=== PATIENT | female | born 1975 | race Caucasian/White ===

== ENCOUNTER 2025-09-01 09:51 | Outpatient (OUT) | payer MEDICARE, MEDICAID, SELFPAY ==
--- OUTSIDE RECORDS SUMMARY | 2024-04-25 04:15 | XMS_ITS | Continuity of Care Document ---
Author Organization [facility] Address [address] [place] [address] Phone Care Team Providers Care Bookbinder Chief Name Role Phone Dakotah GIANFRANCOFranco Unavailable Unavailable Allergies, Adverse Reactions, Alerts Substance Reaction Status Criticality No Known Allergies Active No Inform ation Medications Medication Instructions Dosage Effective Dates (start - stop) Status Comments ibuprofen 600 mg tablet take 1 tablet by oral route 3 times every day with food as needed 600 MG - Active folic acid 20 mg capsule - Active Abilify 10 mg tablet take 1 tablet by oral route every day 10 MG - Active dexlansoprazole 60 mg capsule,biphase delayed release take 1 capsule by oral route every day for 8 weeks 60 MG - Active venlafaxine 100 mg tablet take 1 tablet by oral route 2 times every day with food 100 MG - Active carbamazepine 200 mg tablet take 1 tablet by oral route every 12 hours 200 MG - Active levothyroxine 100 mcg tablet take 1 tablet by oral route every day 100 MCG - Active atorvastatin 40 mg tablet take 1 tablet by oral route every day 40 MG - Active propranolol 10 mg tablet take 2 tablet by oral route 3 times every day 20 MG - Active Vraylar 3 mg capsule take 1 capsule by oral route every day 3 MG - No Longer Active divalproex ER 500 mg tablet,extended release 24 hr take 1 tablet by oral route every day 500 MG - No Longer Active divalproex 125 mg tablet,delayed release take 2 tablet by oral route 2 times every day 250 MG - No Longer Active Seroquel XR 300 mg tablet,extended release take 1 tablet by oral route every day at bedtime 300 MG - No Longer Active Dilantin Extended 100 mg capsule take 1 capsule by oral route 3 times every day 100 MG - No Longer Active Prilosec 40 mg capsule,delayed release take 1 capsule by oral route every day before a meal - No Longer Active Procedures Procedure Date Bitewig-single Film Intraoral-periapical 1st Film [employer] Dis Apr Limited Oral Eval Oral Hygiene Instruction Resin 4+ W/incis Angle Anterior 022 Intraoral-periapical 1st Film Oral Hygiene Instruction Limited Oral Eval Bitewings Four Films Prophylaxis Adult Periodic Oral Eval Estab Patient 2019 [employer] Jul Oral Hygiene Instruction Intraoral-periapical 1st Film 0 PPE Oral Hygiene Instruction Limited Oral Eval Resin 4+ W/incis Angle Anterior 020 Prophylaxis Adult Oral Hygiene Instruction Resin Composite 1s; Posterior 7 Oral Hygiene Instruction Treatment Completed Periodic Oral Eval Estab Patient 2016 Prophylaxis Adult Oral Hygiene Instruction Prophylaxis Adult Oral Hygiene Instruction Resin Composite 3s; Posterior 6 Resin Composite 4+s; Posterior 16 Treatment Completed Treatment Completed Resin Composite 1s; Posterior 6 Resin Composite 2s; Posterior 6 Resin Composite 1s; Posterior 6 Resin Composite 1s; Posterior 6 Prophylaxis Adult Resin Three Surfaces Anterior 6 Resin 4+ W/incis Angle Anterior 016 Intraoral-complete Series (bw) 16 Comp Oral Eval New/estab Patient 2015 Advance Directives Directive Yes / No Effective Date File Name No Information Encounters Encounter Description Practice Location Reason(s) For Visit Diagnoses Date Provider Providers Copied on Encounter [facility], [address], [place], [id number] , [place] tel: [phone] Dental Clinic er (chief complaint) Encounter for screening for dental disorders 4 Dakotah Gamez. [address] [place], [place], [id number], [place]. tel:[phone] [facility], [address], [place], [id number] , [place] tel: [phone] Dental Clinic Filling (chief complaint) Encounter for screening for dental disorders 2 Mujasbirak DDS Kirby. [address] [place], [address], [place]. tel:[phone] [facility], [address] [place] [address], [id number] , [place] tel: [phone] Dental Clinic Dental limited (chief complaint) Encounter for screening for dental disorders 2 Mujasbirak DDS [place]. [address] [place] [address], [address], [place]. tel:[phone] [facility], [address] [place] [address], [id number] , [place] tel: [phone] Dental Clinic Prophy (chief complaint) Encounter for screening for dental disorders 2 0 Og Rivero. [address], [place], [id number], [place]. tel:[phone] [facility], [address], [place], [id number] , [place] tel: [phone] Dental Clinic DL (chief complaint) Encounter for screening for dental disorders 0 0 Yao Monterroso. [address], [place], [id number], [place]. tel:[phone] [facility], [address] [place] [address], [id number] , [place] tel: [phone] Dental Clinic prophy (chief complaint) Encounter for screening for dental disorder 4 8 Marykaseykarisidoro DMD Zanapriscilaulochana. [address] [place], [address], [place]. tel:[phone] [facility], [address], [place], [id number] , [place] tel:[phone] Dental Clinic Filling (chief complaint) Encounter for screening for dental disorder 7 [facility] Edward. [address] [place], [address], [place]. tel:[phone] [facility], [address], [place], [id number] , [place] tel:[phone] Dental Clinic Prophy (chief complaint) Encounter for screening for dental disorder 0 7 [facility] Edward. [address] [place], [address], [place]. tel:[phone] [facility], [address], [place], [id number] , [place] tel:[phone] Dental Clinic prophy (chief complaint) Encounter for screening for dental disorder 7 Hawk DMD Jinbo. [address] [place], [address], [place]. tel:[phone] [facility], [address], [place], [id number] , [place] tel:[phone] Dental Clinic filling (chief complaint) Encounter for screening for dental disorder 6 Hawk DMD Jinbo. [address] [place], [address], [place]. tel:[phone] [facility], [address], [place], [id number] , [place] tel:[phone] Dental Clinic filling (chief complaint) Encounter for screening for dental disorder 6 Hawk DMD Jinbo. [address] [place], [address], [place]. tel:[phone] [facility], [address], [place], [id number] , [place] tel:[phone] Dental Clinic filling (chief complaint) Encounter for screening for dental disorder 6 [facility] Derikbo. [address] [place], [address], [place]. tel:[phone] [facility], [address], [place], [id number] , [place] [phone] Dental Clinic Fillling (chief complaint) Encounter for screening for dental disorder 0 6 [facility] Jinbo. [address] [place], [address], [place]. tel:[phone] [facility], [address] [place] [address], [id number] , [place] [phone] Dental Clinic prophy (chief complaint) Encounter for screening for dental disorder 6 [facility] January. [address], [place], [id number], [place]. tel:[phone] [facility], [address] [place] [address], [id number] , [place] tel:[phone] Dental Clinic Encounter for screening for dental disorder 6 [facility] January. [address], [place], [id number], [place]. tel:[phone] [facility], [address] [place] [address], [id number] , [place] tel:[phone] Dental Clinic Encounter for screening for dental disorder 6 [facility] January. [address], [place], [id number], [place]. tel:[phone] Family History Family Member Type Diagnosis Age At Onset Mother Problem (finding) Alive and well Father Problem (finding) Alive and well Payers Payer name Insurance type Covered libertarian ID Authoriza tierin(s) Self Pay Indigent 09 [id number] Social History Type Description Quantity Date Captured Comments Alcohol Use Details Unknown Caffeine Use Details Unknown Tobacco Use Status Never smoked tobacco 2023 Smoking Status Never smoker Sex Female Sexual Orientation Straight or heterosexual Mar Gender Identity Female Vital Signs Date / Time: Height Weight BMI Pulse Rate Blood Pressure Temperature Respiratory Rate Body Surface Area Head Circumference Head Circ. Percentile Wt./Miguel. Percentile BMI percentile Pulse Ox Inhaled Ox 9:31 AM 68 /min 86/74 mm[Hg] 97.80 F Chief Complaint And Reason For Visit From encounter dated '04/25/2024 09:15'. er (chief complaint) Reason For Referral Reason For Referral No Information Plan Of Treatment Date Type Action Status Goal Tdap Vaccine. Due on 2023 due Goal Zoster vaccine (). Due on due Goal Unhealthy drug use screening . Due on due Goal PRAPARE ASSESSMENT. Due on due Goal Colonoscopy. Due on due Goal CT-Colonography. Due on due Goal HPV. Due on due Goal FIT. Due on due Goal Lipid panel. Due on due Goal Influenza vaccine. Due on due Goal Tdap. Due on due Goal FOBT. Due on due Goal Hepatitis C screening. Due o n due Goal Mammogram. Due on due Goal FIT-DNA. Due on due Goal Depression screening. Due on due Goal Influenza vaccine. Due on due Goal Depression screening. Due on due Goal Lipid panel. Due on due Goal Tdap. Due on due History Of Present Illness Encounter Date Complaint History Of Prese nt Illness er Filling Continue with tr eatment Dental limited Upper left , fra cture filling Prophy Prophy DL prophy Filling Filling Prophy Prophy prophy filling concern with tth #3 broke while eating filling filling//no prob lems or concerns filling continuing with treatment Fillling Filling prophy Functional Status Date Functional Assessmen t No Information Instructions Date Instruction Additional Infor mation No Information Assessments Type Assessment Date No Information Patient Care Teams Name Effective Dates (start - stop) Status Members No Information
--- OUTSIDE RECORDS SUMMARY | 2025-08-16 08:30 | XMS_ITS | Encounter Summary ---
Author Organization [facility] Address [address], [address] [place] [address] Care Team Providers Care Bookkeeping Manager Name Role Phone Mat Loving MD Primary Care Provider [phone] Reason for Referral * Imaging (Routine) - AuthorizedSpecialtyDiagnoses / ProceduresReferred By ContactReferred To ContactRadiology Diagnoses Visit for screening mammogram Procedures MAHAMED DIGITAL SCREEN W OR WO CAD BILATERAL Mat Loving MD [address] [place] [address] Phone: tel: fax: Referral IDStatusReasonStart DateExpiration DateVisits RequestedVisits [id number]/22/202510/22/202611 Reason for Visit * ReasonCommentsMedicare AWVCoughWheezing with her cough. Keeping pt up at night. Encounter Details DateTypeDepartmentCare Team (Latest Contact Info)Pjvoqizqrdc84/22/2025 9:30 AM EDTOffice Visit Mat Loving MD [address] [place] [address] [place] [address] Mat Loving MD [address] [place], [place] [id number] Medicare annual wellness visit, subsequent (Primary Dx); Visit for screening mammogram; Seizures (HCC); Mixed hyperlipidemia; Other specified hypothyroidism; Primary osteoarthritis of right knee; Bipolar disorder, in partial remission, most recent episode mixed (HCC) Social History Tobacco UseTypesPacks/DayYears UsedDateSmoking Tobacco: NeverSmokeless Tobacco: Never Tobacco Cessation:Counseling Given: No Alcohol UseStandard Drinks/WeekCommentsNever0 (1 standard drink = 0.6 oz pure alcohol)17 years without alcoholSocial Connection and Isolation PanelAnswerDate RecordedIn a typical week, how many times do you talk on the phone with family, friends, or neighbors?More than three times a week08/12/2024How often do you get together with friends or relatives?Twice a week08/12/2024How often do you attend buddhist or confucianist services?Never08/12/2024o you belong to any clubs or organizations such as buddhist groups, unions, fraternal or athletic groups, or school groups?Yes08/12/2024How often do you attend meetings of the clubs or organizations you belong to?1 to 4 times per year08/12/2024re you , , , , never , or living with a partner?Never dqhgmkf7108/12/2024UDIT-CAnswerDate RecordedQ1: How often do you have a drink containing alcohol?Never08/12/2024Q2: How many drinks containing alcohol do you have on a typical day when you are drinking?Patient does not drink08/12/2024Q3: How often do you have six or more drinks on one occasion?Never08/12/2024HQ-2 AnswerDate RecordedPHQ-9 Total Uoruy773Exercise Vital SignAnswerDate RecordedOn average, how many days per week do you engage in moderate to strenuous exercise (like a brisk walk)?0 days08/12/2024On average, how many minutes do you engage in exercise at this level?0 min08/12/2024RAPARE - TransportationAnswerDate RecordedIn the past 12 months, has lack of transportation kept you from medical appointments or from getting medications?No 09/28/2024In the past 12 months, has lack of transportation kept you from meetings, work, or from getting things needed for daily living?No09/28/2024 Housing Stability Vital SignAnswerDate RecordedUnable to Pay for Housing in the Last YearNot on file02/10/2024Number of Places Lived in the Last YearNot on file 02/10/2024In the last 12 months, was there a time when you did not have a steady place to sleep or slept in ashelter (including now)?No02/10/2024Housing Stability Vital SignAnswerDate RecordedIn the last 12 months, was there a time when you were not able to pay the mortgage or rent on time?No08/18/2025In the past 12 months, how many times have you moved where you were living? At any time in the past 12 months, were you homeless or living in a detention (including now)?No08/18/2025Humiliation, Afraid, Rape, and Kick questionnaire AnswerDate RecordedWithin the last year, have you been afraid of your partner or ex-partner?No08/18/2025Within the last year, have you been humiliated or emotionally abused in other ways by your partner or ex-partner?No08/18/2025 Within the last year, have you been kicked, hit, slapped, or otherwise physically hurt by your partner or ex-partner?No08/18/2025Within the last year, have you been raped or forced to have any kind of sexual activity by your part ner or ex-partner?No08/18/2025Social Connection and Isolation PanelAnswerDate RecordedIn a typical week, how many times do you talk on the phone with family, friends, or neighbors?More than three times a week08/18/2025How often do you get together with friends or relatives?Once a week08/18/2025How often do you attend buddhist or confucianist services?Never08/18/2025Do you belong to any clubs or organizations such as buddhist groups, unions, fraternal or athletic groups, or school groups?Yes08/18/2025How often do you attend meetings of the clubs or organizations you belong to?More than 4 times per year08/18/2025re you , , , , never , or living with a partner?Never eqjjctc6408/18/2025UDIT-CAnswerDate RecordedQ1: How often do you have a drink containing alcohol?Never08/18/2025Q2: How many drinks containing alcohol do you have on a typical day when you are drinking?Patient does not drink08/18/2025Q3: How often do you have six or more drinks on one occasion?Never08/18/2025Overall Financial Resource Strain (CARDIA)AnswerDate RecordedHow hard is it for you to pay for the very basics like food, housing, medical care, and heating?Not hard at all08/18/2025[facility] [place] [facility] Occup[facility] - Occupational Stress QuestionnaireAnswerDate RecordedDo you feel stress - tense, restless, nervous, or anxious, or unable to sleep at night because yourmind is troubled all the time - these days?To some dvhoku2608/18/2025Exercise Vital SignAnswerDate Recorded On average, how many days per week do you engage in moderate to strenuous exercise (like a brisk walk)?0 days08/18/2025On average, how many minutes do you engage in exercise at this level?0 min08/18/2025Hunger Vital SignAnswerDate RecordedWithin the past 12 months, you worried that your food would run out before you got the money to buymore.Sometimes true08/18/2025Within the past 12 months, the food you bought just didn't last and you didn't have money to get more.Sometimes true08/18/2025PRAPARE - TransportationAnswerDate RecordedIn the past 12 months, has lack of transportation kept you from medical appointments or from getting medications?No08/18/2025In the past 12 months, has lack of transportation kept you from meetings, work, or from getting things needed for daily living?No08/18/2025HC UtilitiesAnswerDate RecordedIn the past 12 months has the electric, gas, oil, or water company threatened to shut off services in your home?No08/18/2025Interpersonal Safety ([facility] HRSN)AnswerDate RecordedHow often does anyone, including family and friends, physically hurt you?Never 08/12/2024How often does anyone, including family and friends, scream or curse at you?Never08/12/2024How often does anyone, including family and friends, insult or talk down to you?Khzzye9608/12/2024How often does anyone, including family and friends, threaten you with harm?Never08/12/2024Interpersonal Safety Domain Source: IP Abuse ScreeningAnswerDate RecordedPhysical abuseDenies 09/28/2024Verbal vgivcTiryat14/04/2024Emotional vzhywZofpuv38/04/2024Financial kfugdSznsuw41/04/2024Sexual pudetMqalma95/04/2024CommentsNoSex and Gender InformationValueDate RecordedSex Assigned at BirthNot on fileLegal Sex Glccve7912/05/2012 10:58 AM ESTGender IdentityNot on fileSexual OrientationNot on filedocumented as of this encounter Last Filed Vital Signs Vital SignReadingTime TakenCommentsBlood Sbxwiqrx04/6108/16/2025 9:28 AM EDT Yoxpb092408/16/2025 9:28 AM EDTTemperature--Respiratory Rate--Oxygen Saturation-- Inhaled Oxygen Concentration--Xixbab050.7 kg (244 lb)08/16/2025 9:28 AM EDT Cgethi156 cm (5' 3 )08/16/2025 9:28 AM EDTBody Mass Index43.221 9:28 AM EDTdocumented in this encounter Functional Status * QuestionAnswerDate of AssessmentAuthorQ1: How often do you have a drink containing alcohol?Never08/18/2025 10:52 AM Penny Addison MAQ2: How many drinks containing alcohol do you have on a typical day when you are drinking? Patient does not drink08/18/2025 10:52 AM Penny Addison MAQ3: How often do you have six or more drinks on one occasion?Never08/18/2025 10:52 AM Penny Addison MA * AUDIT-C ScoreAnswerDate of TbgfcpxpaeIpfcvk075/24/2025 10:52 AM Penny Addison MA documented as of this encounter Patient Instructions * Patient Instructions* Mat Loving MD - 08/16/2025 9:59 AM EDT Labs ordered I would like to do this sometime in the next month. They are fasting. Monico Hummel for the cough. I expect it is postnasal drip and unfortunately you are going to be like this for a couple more months Follow-up in 6 months mammogram documented in this encounter Progress Notes * Mat Loving MD - 08/16/2025 9:55 AM EDT Medicare Annual Wellness Visit Cassi Caldera is here for Medicare AWV and Cough (Wheezing with her cough. Keeping pt up at night. ) Assessment & Plan Medicare annual wellness visit, subsequent Visit for screening mammogram - MAHAMED DIGITAL SCREEN W OR WO CAD BILATERAL; Future Seizures (HCC) - Carbamazepine Level, Free; Future Mixed hyperlipidemia - Lipid, Fasting; Future Other specified hypothyroidism - TSH; Future Primary osteoarthritis of right knee - Comprehensive Metabolic Panel, Fasting; Future Bipolar disorder, in partial remission, most recent episode mixed (HCC) Return in 1 year (on 08/16/2026) for Medicare AWV, check up 6 months. Subjective The following acute and/or chronic problems were also addressed today: I wellness No Recent seizure Patient's complete Health Risk Assessment and screening values have been reviewed and are found in Flowsheets. The following problems were reviewed today and where indicated follow up appointments were made and/or referrals ordered. Positive Risk Factor Screenings with Interventions: Inactivity: (!) Abnormal Interventions: Patient declined any further interventions or treatment Abnormal BMI (obese): Body mass index is 43.22 kg/m??. (!) Abnormal Interventions: Patient declines any further evaluation or treatment Obesity Counseling: Patient was asked about her current diet and exercise habits, and personalized advice was provided regarding recommended lifestyle changes. Patient's comorbid health conditions associated with elevated BMI were discussed, as well as the likely benefits of weight loss. Based uponpatient's motivation to change her behavior, the following plan was agreed upon to work toward a weight loss goal of 15 pounds: lower carbohydrate diet. Educational materials for weight loss were provided. Patient will follow-up in 1 year(s) with PCP. Time spent counseling patient: 15 minutes Objective Vitals: 08/16/25 0928 BP: 91/61 Pulse: 62 Weight: 110.7 kg (244 lb) Height: 1.6 m (5' 3 ) Body mass index is 43.22 kg/m??. General Appearance: alert and oriented to person, place and time, well developed and well- nourished, in no acute distress Skin: warm and dry, no rash or erythema Head: normocephalic and atraumatic Eyes: pupils equal, round, and reactive to light, extraocular eye movements intact, conjunctivae normal ENT: tympanic membrane, external ear and ear canal normal bilaterally, nose without deformity, nasal mucosa and turbinates normal without polyps Neck: supple and non-tender without mass, no thyromegaly or thyroid nodules, no cervical lymphadenopathy Pulmonary/Chest: clear to auscultation bilaterally- no wheezes, rales or rhonchi, normal air movement, no respiratory distress Cardiovascular: normal rate, regular rhythm, normal S1 and S2, no murmurs, rubs, clicks, or gallops, distal pulses intact, no carotid bruits Abdomen: soft, non-tender, non-distended, normal bowel sounds, no masses or organomegaly Extremities: no cyanosis, clubbing or edema Musculoskeletal: normal range of motion, no joint swelling, deformity or tenderness Neurologic: reflexes normal and symmetric, no cranial nerve deficit, gait, coordination and speech normal No Known Allergies Prior to Visit Medications Medication Sig Taking? Authorizing Provider hydrOXYzine HCl (ATARAX) 25 MG tablet Take 1 tablet by mouth Yes Isidro Reeves MD traZODone (DESYREL) 100 MG tablet Take 1 tablet by mouth nightly Yes Isidro Reeves MD benzonatate (TESSALON PERLES) 100 MG capsule Take 1 capsule by mouth 3 times daily as needed for Cough Yes Mat Loving MD levothyroxine (SYNTHROID) 100 MCG tablet TAKE 1 TABLET BY MOUTH DAILY Yes Mat Loving MD carBAMazepine (TEGRETOL) 200 MG tablet TAKE 1 TABLET BY MOUTH EVERY MORNING AND TAKE 2 TABLETS BY MOUTH ONCE NIGHTLY Yes Joan Amaro MD atorvastatin (LIPITOR) 40 MG tablet TAKE 1 TABLET BY MOUTH ONCE DAILY Yes Mat Loving MD propranolol (INDERAL) 20 MG tablet Take 1 tablet by mouth 2 times daily Yes Joan Amaro MD fluticasone (FLONASE) 50 MCG/ACT nasal spray 1 spray by Each Nostril route daily Yes Mat Loving MD lamoTRIgine (LAMICTAL) 25 MG tablet Take 1 tablet by mouth daily Yes ProviderIsidro MD ARIPiprazole (ABILIFY) 10 MG tablet Take 1 tablet by mouth nightly at bedtime. Yes Isidro Reeves MD DEXILANT 60 MG CPDR delayed release capsule take 1 capsule by mouth once daily Yes ProviderIsidro MD folic acid (FOLVITE) 800 MCG tablet Take 1 tablet by mouth daily Yes Isidro Reeves MD venlafaxine (EFFEXOR) 100 MG tablet Take 1 tablet by mouth 2 times daily Yes Mat Loving MD [facility] (Including outside providers/suppliers regularly involved in providing care): Patient Care Team: Mat Loving MD as PCP - General Mat Loving MD as PCP - Empaneled Provider Recommendations for Preventive Services Due: see orders and patient instructions/AVS. Recommended screening schedule for the next 5-10 years is provided to the patient in written form: see Patient Instructions/AVS. Reviewed and updated this visit: Tobacco Allergies Meds Problems documented in this encounter Plan of Treatment DateTypeDepartmentCare Team (Latest Contact Info)Gssdxallafh71/21/2026 10:00 AM EDTOffice Visit Mat Loving MD [address] [place] [address] [place] [phone] Mat Loving MD [address] [place] [address], [address] [facility] [place] [address] 6 month 02/15/2026 10:40 AM EDTOffice Visit [facility] Part of [address] [place] [address] Joan Amaro MD [address] [place] [address] [facility] [address] [facility] [place] [address] 6 month f/u; Qgjgkyw72/27/2026 10:00 AM EDTOffice Visit Mat Loving MD [address] [place] [phone] Mat Loving MD [address] [facility], [place] [address] awvNameTypePriorityAssociated DiagnosesOrder ScheduleMAM DIGITAL SCREEN W OR WO CAD BILATERALImagingRoutine Visit for screening mammogram Expected: 08/16/2025, Expires: 10/16/2026documented as of this encounter Results * TSH (08/28/2025 7:22 AM EST)ComponentValueRef RangeTest MethodAnalysis Time Performed AtPathologist SignatureTSH2.490.27 - 4.20 uIU/mL08/28/2025 7:22 AM [facility] LABSpecimen (Source)Anatomical Location / LateralityCollection Method / VolumeCollection TimeReceived TimeBloodBLOOD SPECIMEN / Jztzcdv6908/28/2025 7:22 AM EST08/28/2025 7:23 AM EST Narrative Authorizing ProviderResult TypeResult StatusMark Stuart Loving MDCHEMISTRY ORDERABLESFinal ResultPerforming OrganizationAddressCity/State/ZIP CodePhone Number [facility] [address] [place] [address], [facility] [phone] * Carbamazepine Level, Free (08/28/2025 7:22 AM EST)ComponentValueRef RangeTest MethodAnalysis TimePerformed AtPathologist SignatureCarbamazepine, Free1.71.0 - 3.0 ug/mL08/28/2025 7:22 AM ESTARUP LABORATORYCarbamazepine, Total6.04.0 - 12.0 ug/mL08/28/2025 7:22 AM ESTARUP [facility]ATORY% Free Npkprwbqywolu23.38.0 - 35.0 %08/28/2025 7:22 AM ESTARUP LABORATORYComment: (NOTE) INTERPRETIVE INFORMATION: Carbamazepine, Free and Total, ? Serum or Plasma The therapeutic range is based on serum pre-dose (trough) draw at steady-state concentration. Free carbamazepine may be important to monitor in patients with altered or unpredictable protein binding capacity. Carbamazepine is also subject to drug-drug interactions due to displacement of protein binding and extensive metabolism. Cross-reactivity with metabolites may account for differences in carbamazepine among analytical methods. Calculating percent free attempts to minimize differences in assay cross-reactivity and may be useful in dose optimization. A rare adverse drug reaction to carbamazepine therapy includes Goff-Jonatan syndrome or toxic epidermal necrolysis. Patients of ancestry with the presence of the HLA-B*15:02 have an increased risk for this carbamazepine-induced life-threatening reaction. Pharmacogenetic testing for HLA-B*15:02 is recommended for patients at risk for carbamazepine hypersensitivity prior to treatment. This information has been included in the FDA-approved label for carbamazepine (https://www.accessdata.fda.gov/scripts/cder/daf/index.cfm) and guideline from the Clinical Pharmacogenetics Implementation Consortium (https://www.pharmgkb.org/guidelines) [[facility] test code 4681240, HLA-B*15:02 Genotyping, Carbamazepine Hypersensitivity.] A combination of therapeutic drug monitoring with HLA-B*15:02 pharmacogenetics genotyping may benefit patients who are at increased risk for developing carbamazepine-induced adverse events due to rare genotypes other than HLA-B*15:02 variant allele. Performed By: [employer] [address] [place] [address] Plant Breeder Scientist: Dedrick Gómez MD, PhD CLIA Number: [id number] Specimen (Source)Anatomical Location / LateralityCollection Method / Volume Collection TimeReceived TimeBloodBLOOD SPECIMEN / Yqbwpij5108/28/2025 7:22 AM EST 08/28/2025 7:23 AM EST Narrative Authorizing ProviderResult TypeResult StatusMark Stuart Loving MDCHEMISTRY ORDERABLESFinal ResultPerforming OrganizationAddressCity/State/ZIP CodePhone Number [facility] [address] [place], [place] [address] [phone] [employer] [address] [place] [address] * (ABNORMAL) Comprehensive Metabolic Panel, Fasting (08/28/2025 7:22 AM EST) ComponentValueRef RangeTest MethodAnalysis TimePerformed AtPathologist CugfpzeslEaoroz767(L)136 - 145 mmol/L110/28/2024 7:22 AM [facility] LABPotassium4.23.7 - 5.3 mmol/L110/28/2024 7:22 AM [facility] NAZDufybrak58(L)98 - 107 mmol/L110/28/2024 7:22 AM [facility] UXLTJ37518 - 31 mmol/L110/28/2024 7:22 AM [facility] LABAnion Gap99 - 16 mmol/L110/28/2024 7:22 AM [facility] LABGlucose, Lwxsikr037(H)74 - 99 mg/dL08/28/2025 7:22 AM [facility] BKGAFN614 - 20 mg/dL08/28/2025 7:22 AM [facility] LABCreatinine0.80.50 - 0.90 mg/dL08/28/2025 7:22 AM [facility] LABEst, Glom Filt Rate>90>60 mL/min/1.73m2 08/28/2025 7:22 AM [facility] LABComment: ? These results are not intended for use in patients <18 years of age. ? eGFR results are calculated without a race factor using the 2020 CKD-EPI equation. Careful clinical correlation is recommended, particularly when comparing to results calculated using previous equations. The CKD-EPI equation is less accurate in patients with extremes of muscle mass, extra-renal metabolism of creatine, excessive creatine ingestion, or following therapy that affects renal tubular secretion. BUN/Creatinine Dyskp305 - 7:22 AM [facility] LABCalcium9.38.6 - 10.4 mg/dL08/28/2025 7:22 AM [facility] LABTotal Protein7.56.6 - 8.7 g/dL08/28/2025 7:22 AM [facility] LABAlbumin4.43.5 - 5.2 g/dL08/28/2025 7:22 AM [facility] LABAlbumin/Globulin Ratio1.41.0 - 2.511 7:22 AM [facility] LABTotal Bilirubin0.30.00 - 1.20 mg/dL08/28/2025 7:22 AM EST [facility] LABAlkaline Rwsytwlyztf102(H)35 - 104 U/L110/28/2024 7:22 AM [facility] ZPJQUG0169 - 35 U/L110/28/2024 7:22 AM [facility] NNIZXG0299 - 35 U/L110/28/2024 7:22 AM [facility] LABSpecimen (Source)Anatomical Location / Laterality Collection Method / VolumeCollection TimeReceived TimeBloodBLOOD SPECIMEN / Uvnfyfp7708/28/2025 7:22 AM EST08/28/2025 7:23 AM EST Narrative Authorizing ProviderResult TypeResult StatusMark Stuart Loving MDCHEMISTRY ORDERABLESFinal ResultPerforming OrganizationAddressCity/State/ZIP CodePhone Number [facility] [address] [phone] * Lipid, Fasting (08/28/2025 7:22 AM EST)ComponentValueRef RangeTest Method Analysis TimePerformed AtPathologist SignatureCholesterol, Jplzrgi8951 - 199 mg/dL08/28/2025 7:22 AM [email or web address] LABORATORIESComment: Cholesterol Guidelines: <200 Desirable 200-240 ??Borderline >240 Undesirable HDL60>40 mg/dL08/28/2025 7:22 AM [email or web address] LABORATORIESComment: HDL Guidelines: <40 Undesirable 40-59 ?Borderline >59 Desirable LDL Kiwsnpanlyu030 - 100 mg/dL08/28/2025 7:22 AM [email or web address] LABORATORIESComment: LDL Guidelines: <100 Desirable 100-129 ?? Near to/above Desirable 130-159 ?? Borderline >159 Undesirable Direct (measured) LDL and calculated LDL are not interchangeable tests. Chol/HDL Ratio2.6<5.011 7:22 AM [email or web address] LABORATORIESTriglyceride, Xfyvrmu165 - 149 mg/dL08/28/2025 7:22 AM ESTMERCY LABORATORIESComment: Triglyceride Guidelines: <150 Desirable 150-199 ??Borderline 200-499 ??High >499 Very high Based on AHA Guidelines for fasting triglyceride, July 2012. LIIZ740 - 30 mg/dL08/28/2025 7:22 AM ESTMERCY LABORATORIESSpecimen (Source) Anatomical Location / LateralityCollection Method / VolumeCollection Time Received TimeBloodBLOOD SPECIMEN / Yjpivti4808/28/2025 7:22 AM EST08/28/2025 7:23 AM EST Narrative Authorizing ProviderResult TypeResult StatusMark Stuart Loving MDCHEMISTRY ORDERABLESFinal ResultPerforming OrganizationAddressCity/State/ZIP CodePhone Number [facility] [address] [place] [address], [facility] [phone] [facility] [address] [place] [address], [facility] [phone] documented in this encounter Visit Diagnoses Diagnosis Medicare annual wellness visit, subsequent- Primary Routine general medical examination at a health care facility Visit for screening mammogram Other screening mammogram Seizures (HCC) Other convulsions Mixed hyperlipidemia Other specified hypothyroidism Primary osteoarthritis of right knee Primary localized osteoarthrosis, lower leg Bipolar disorder, in partial remission, most recent episode mixed (HCC) Bipolar I disorder, most recent episode (or current) mixed, in partial or unspecified remission documented in this encounter Additional Health Concerns AssessmentNoted TimeA fall risk assessment has been completed for the patient 08/18/2025 10:52 AM EDTdocumented as of this encounter Care Teams Team MemberRelationshipSpecialtyStart DateEnd Date Mat Loving MD [address] [place] [address] PCP - General07/07/12documented as of this encounter
--- OUTSIDE RECORDS SUMMARY | 2025-08-17 09:40 | XMS_ITS | Encounter Summary ---
Author Organization [facility] Address [address], [address] [place] [address] Care Team Providers Care Driving Teacher Name Role Phone Mat Loving MD Primary Care Provider [phone] Reason for Visit * ReasonCommentsTremors6 month follow up. Patient states tremor continues. It varies. Denies any new seizures. Encounter Details DateTypeDepartmentCare Team (Latest Contact Info)Qrttbwfpwlb51/23/2025 10:40 AM EDTOffice Visit [facility] NE[facility]OLOG[facility] Part of [address] [place] [address] Joan Amaro MD [address] [place] [address] [address] [place] [address] Tremors of nervous system Social History Tobacco UseTypesPacks/DayYears UsedDateSmoking Tobacco: NeverSmokeless Tobacco: NeverAlcohol UseStandard Drinks/WeekCommentsNo0 (1 standard drink = 0.6 oz pure alcohol)17 years without alcoholSocial Connection and Isolation PanelAnswerDate RecordedIn a typical week, how many times do you talk on the phone with family, friends, or neighbors?More than three times a week08/12/2024How often do you get together with friends or relatives?Twice a week08/12/2024How often do you attend religious or mandaeism services?Never4Do you belong to any clubs or organizations such as religious groups, unions, fraternal or athletic groups, or school groups?Yes08/12/2024How often do you attend meetings of the clubs or organizations you belong to?1 to 4 times per year08/12/2024re you , , , , never , or living with a partner?Never kjgtjyz2008/12/2024UDIT-CAnswerDate RecordedQ1: How often do you have a drink containing alcohol?Never08/12/2024Q2: How many drinks containing alcohol do you have on a typical day when you are drinking?Patient does not drink08/12/2024Q3: How often do you have six or more drinks on one occasion?Never08/12/2024HQ-2 AnswerDate RecordedPHQ-9 Total Jooxr979Exercise Vital SignAnswerDate RecordedOn average, how many days [...] steady place to sleep or slept in [facility] (including now)?No02/10/2024Housing Stability Vital SignAnswerDate RecordedIn the last 12 months, was there a time when you were not able to pay the mortgage or rent on time?No08/18/2025In the past 12 months, how many times have you moved where you were living? At any time in the past 12 months, were you homeless or living in a halfway (including now)?No08/18/2025Humiliation, Afraid, Rape, and Kick questionnaire [...] relatives?Once a week08/18/2025How often do you attend religious or mandaeism services?Never08/18/2025Do you belong to any clubs or organizations such as religious groups, unions, fraternal or athletic groups, or school groups?Yes08/18/2025How often do you attend meetings of the clubs or organizations you belong to?More than 4 times per year08/18/2025re you , , , , never , or living with a partner?Never wgmgvgf5308/18/2025UDIT-CAnswerDate RecordedQ1: How often do you have a [...] housing, medical care, and heating?Not hard at all08/18/2025[facility] [place] of Occupational Health - Occupational Stress QuestionnaireAnswerDate RecordedDo you feel stress - tense, restless, nervous, or anxious, or unable to sleep at night because yourmind is troubled all the time - these days?To some smqvrb0108/18/2025Exercise Vital SignAnswerDate Recorded On average, how many [...] has the electric, gas, oil, or water Orad threatened to shut off services in your home?No08/18/2025Interpersonal Safety ([facility])AnswerDate RecordedHow often does anyone, including family and friends, physically hurt you?Never 08/12/2024How often does anyone, including family and friends, scream or curse at you?Never08/12/2024How often does anyone, including family and friends, insult or talk down to you?Yeahmm3208/12/2024How often does anyone, including family and friends, threaten you with harm?Never08/12/2024Interpersonal Safety Domain Source: IP Abuse ScreeningAnswerDate RecordedPhysical abuseDenies 09/28/2024Verbal mmlztHyweyr50/04/2024Emotional flqkzMeruqa21/04/2024Financial ieeneFwiwfn01/04/2024Sexual mxiamFhtrte32/04/2024CommentsNoSex and Gender InformationValueDate RecordedSex Assigned at BirthNot on fileLegal Sex Tazrrm0212/05/2012 10:58 AM ESTGender IdentityNot on fileSexual OrientationNot on filedocumented as of this encounter Last Filed Vital Signs Vital SignReadingTime TakenCommentsBlood Vuazeeil01/5708/17/2025 10:37 AM EDT Puibk258608/17/2025 10:37 AM WLFSnqbdlstzhx14.7 ??C (96.2 ??F)08/17/2025 10:37 AM EDTRespiratory Ucvs3328 10:37 AM EDTOxygen Saturation--Inhaled Oxygen Concentration--Viuedv305.1 kg (245 lb)08/17/2025 10:37 AM WEUMtsuqh508 cm (5' 3 )08/17/2025 10:37 AM EDTBody Mass Index43.410 10:37 AM EDTdocumented in this encounter Functional Status [...] Penny Addison MA * AUDIT-C ScoreAnswerDate of KoarnqykfiOdkzcf726/24/2025 10:52 AM Penny Addison MA documented as of this encounter Patient Instructions * Patient Instructions* Daphnie Brown MA - 08/17/2025 10:41 AM EDT SURVEY: Thank you for allowing us to care for you today. You may be receiving a survey from [facility] regarding your visit today- electronically or via mail. Please help us by completing the survey as this will provide the needed feedback to ensure we are providing the very best care for you and your family. If you cannot score us a very good on any question, please call the office to discuss how we could have made your experience a very good one. Thank you. BL[employer]ER STAFF: Dorene Lema, Angelita MACHADO CLINICAL STAFF: Estelita CARDONA, Pennie MACHADO, Daphnie MACHADO, Keara CARDONA documented in this encounter Progress Notes * Joan Amrao MD - 08/17/2025 10:36 AM EDT NEUROLOGY follow-up. Patient Name: Cassi Caldera : 1975 Clinic Visit Date: 08/17/2025 I saw . Cassi Caldera in the neurology clinic today for routine 6-month follow up. 50-year-old lady with history of a seizure disorder, alcohol abuse in the past, hyperlipidemia, obesity, tremors and bipolar disorder/depression . No seizures on carbamazepine. Tremors have improved with current medication, however she continues to experience intermittent worsening during the day. No other new orsignificant neurological symptoms of concern REVIEW OF SYSTEMS Constitutional Weight changes: absent, change in appetite: absent Fatigue: present;Fevers : absent,Any recent hospitalizations: absent HEENT Ears: normal, Visual disturbance: absent Respiratory Shortness of breath: absent, choking: absent, Cough: present, Snoring : absent Cardiovascular Chest pain: absent, Leg swelling :absent, palpitations : absent, fainting : absent GI Constipation: absent, Diarrhea: absent, Swallowing change: absent Urinary frequency: absent, Urinary urgency: absent, Urinary incontinence: absent Musculoskeletal Neck pain: absent, Back pain: absent, Stiffness: absent, Muscle pain: absent, Jointpain: absent, restless leg : absent Dermatological Hair loss: absent, Skin changes: absent Neurological Confusion: absent, Trouble concentrating: absent, Seizures: absent; Memory loss: absent, balance problem: absent, Dizziness: absent, vertigo: absent, Weakness: absent, Numbness absent, Tremor: present, Spasm: absent, involuntary movement: absent, Speech difficulty: absent, Headache: absent, Light sensitivity: absent Psychiatric Anxiety: present, Depression present, drug abuse: absent, Hallucination: absent, mood disorder: present, Suicidal ideations absent Hematologic Abnormal bleeding: absent, Anemia: absent, Lymph gland changes: absent Clotting disorder: absent Past Medical History: Diagnosis Date Alcoholic (HCC) Dependence in remission Anxiety Bipolar disorder ([facility]) 10/26/2005 Depression Hyperlipidemia 10/26/2011 Seizures ([facility]) 10/26/1997 Torn meniscus 06/2023 right knee Past Surgical History: Procedure Laterality Date CERVICAL DISC SURGERY 2008 COLONOSCOPY KNEE ARTHROSCOPY W/ MENISCAL REPAIR Right 2022 STEROID INJECTION KNEE Right December 2023 TOTAL KNEE ARTHROPLASTY Right 09/28/2024 KNEE TOTAL ARTHROPLASTY performed by Bob Bunch MD at [facility] OR Social History Socioeconomic History Marital status: Single Spouse name: Not on file Number of children: Not on file Years of education: Not on file Highest education level: Not on file Occupational History Not on file Tobacco Use Smoking status: Never Smokeless tobacco: Never Vaping Use Vaping status: Never Used Substance and Sexual Activity Alcohol use: No Comment: 17 years without alcohol Drug use: No Sexual activity: Not on file Other Topics Concern Not on file Social History Narrative Not on file Social Drivers of Health Financial Resource Strain: Low Risk (08/12/2024) Overall Financial Resource Strain (CARDIA) Difficulty of Paying Living Expenses: Not hard at all Food Insecurity: No Food Insecurity (09/28/2024) Hunger Vital Sign Worried About Running Out of Food in the Last Year: Never true Ran Out of Food in the Last Year: Never true Transportation Needs: No Transportation Needs (09/28/2024) PRAPARE - Transportation Lack of Transportation (Medical): No Lack of Transportation (Non-Medical): No Physical Activity: Inactive (08/12/2024) Exercise Vital Sign Days of Exercise per Week: 0 days Minutes of Exercise per Session: 0 min Stress: No Stress Concern Present (08/12/2024) [place] of Occupational Health - Occupational Stress Questionnaire Feeling of Stress : Not at all Social Connections: Moderately Isolated (08/12/2024) Social Connection and Isolation Panel Frequency of Communication with Friends and Family: More than three times a week Frequency of Social Gatherings with Friends and Family: Twice a week Attends Mandaeism Services: Never Active Member of Clubs or Organizations: Yes Attends Club or Organization Meetings: 1 to 4 times per year Marital Status: Never Intimate Partner Violence: Not At Risk (08/12/2024) Humiliation, Afraid, Rape, and Kick questionnaire Fear of Current or Ex-Partner: No Emotionally Abused: No Physically Abused: No Sexually Abused: No Housing Stability: Low Risk (09/28/2024) Housing Stability Vital Sign Unable to Pay for Housing in the Last Year: No Number of Times Moved in the Last Year: 0 Homeless in the Last Year: No Family History Problem Relation Age of Onset No Known Problems Mother Current Outpatient Medications Medication Sig Dispense Refill carBAMazepine (TEGRETOL) 200 MG tablet TAKE 1 TABLET BY MOUTH EVERY MORNING AND TAKE 2 TABLETS BY MOUTH ONCE NIGHTLY 90 tablet 5 hydrOXYzine HCl (ATARAX) 25 MG tablet Take 1 tablet by mouth traZODone (DESYREL) 100 MG tablet Take 1 tablet by mouth nightly benzonatate (TESSALON PERLES) 100 MG capsule Take 1 capsule by mouth 3 times daily as needed for Cough 30 capsule 1 levothyroxine (SYNTHROID) 100 MCG tablet TAKE 1 TABLET BY MOUTH DAILY 90 tablet 3 atorvastatin (LIPITOR) 40 MG tablet TAKE 1 TABLET BY MOUTH ONCE DAILY 90 tablet 3 propranolol (INDERAL) 20 MG tablet Take 1 tablet by mouth 2 times daily 60 tablet 5 fluticasone (FLONASE) 50 MCG/ACT nasal spray 1 spray by Each Nostril route daily 32 g 1 ARIPiprazole (ABILIFY) 10 MG tablet Take 1 tablet by mouth nightly at bedtime. (Patient taking differently: Take 1 tablet by mouth daily) DEXILANT 60 MG CPDR delayed release capsule take 1 capsule by mouth once daily folic acid (FOLVITE) 800 MCG tablet Take 1 tablet by mouth daily venlafaxine (EFFEXOR) 100 MG tablet Take 1 tablet by mouth 2 times daily 90 tablet 1 lamoTRIgine (LAMICTAL) 25 MG tablet Take 1 tablet by mouth daily No current facility-administered medications for this visit. DATA: Lab Results Component Value Date WBC 7.3 08/08/2024 HGB 11.9 08/08/2024 PLT See Reflexed IPF Result 08/08/2024 CHOL 175 07/25/2024 TRIG 66 07/25/2024 HDL 61 07/25/2024 ALT 16 08/08/2024 AST 19 08/08/2024 NA 137 08/08/2024 K 3.7 08/08/2024 CL 98 08/08/2024 CREATININE 0.7 08/08/2024 BUN 9 08/08/2024 CO2 28 08/08/2024 TSH 1.32 06/30/2023 INR 1.0 08/08/2024 GLUF 96 06/30/2023 LABA1C 5.9 07/26/2024 BP (!) 99/57 (BP Site: Left Upper Arm, Patient Position: Sitting, BP Cuff Size: Large Adult) Pulse 70 Temp (!) 96.2 ??F (35.7 ??C) (Temporal) Resp 22 Ht 1.6 m (5' 3 ) Wt 111.1 kg (245 lb) BMI 43.40 kg/m?? NEUROLOGICAL EXAMINATION: MENTAL STATUS: Normal CRANIAL NERVES: II-XII are normal MOTOR EXAMINATION: Muscle tone is normal. Strength is 5/5 in both upper and lower limbs. Mild persistent postural tremor in both upper extremities. No head tremor or upper extremity tremors. SENSORY EXAMINATION: Normal. STRETCH REFLEXES: Symmetrical in both the upper and lower limbs. GAIT:. Normal. IMPRESSION/PLAN: 1. Seizure disorder.Doing well on carbamazepine 600 mg/day [200 mg in AM/400 mg in PM]. 2. Chronic essential tremors. Stable on propranolol 20 mg twice daily. Slight increase in tremors per history. Increase the dose of propranolol to 20 mg 3 times daily. Will switch over to propranololLA 60 mg after she finishes with the current prescription. 3. Follow-up in 6 months NOTE: [facility]Patients requiring frequent evaluations or uncomfortable with potential 3-4 day turnaround on questions or calls may be better served by a neurologist in the area realtime court reporter. [facility]'s neurology group at [facility] is available for outpatient visits and procedures including EMG/NCS. Non-[facility] neurologists also practice in [place] (Dr. Nesbitt) and [place] (Diego Santiago). Joan Amaro MD 08/17/2025 4:31 PM documented in this encounter Plan of Treatment DateTypeDepartmentCare Team (Latest Contact Info)Tyrlgqugabr83/21/2026 10:00 AM EDTOffice Visit Mat Loving MD [address] [place] [address] [place] [id number] Mat Loving MD [address] [place] [address], [place] [address] 6 month 02/15/2026 10:40 AM EDTOffice Visit [facility] NEUROLOGY Part of [facility] [address] [place] [address] Joan Amaro MD [address] [place] [id number] 6 month f/u; Cuojuvm66/27/2026 10:00 AM EDTOffice Visit Mat Loving MD [address] [place] [address] Mat Loving MD [address] [facility], [facility] [[email or web address] [place] [address] awvdocumented as of this encounter Visit Diagnoses Diagnosis Tremors of nervous system Abnormal involuntary movements documented in this encounter Additional Health Concerns AssessmentNoted TimeA fall risk assessment has been completed for the patient 07/10/2025 10:05 AM EDTdocumented as of this encounter Care Teams Team MemberRelationshipSpecialtyStart DateEnd Date Mat Loving MD [address] [place] [address], [facility] [[email or web address]] [place] [address] PCP - General07/07/12documented as of this encounter
--- OUTSIDE RECORDS SUMMARY | 2025-08-28 07:20 | XMS_ITS | Encounter Summary ---
Author Organization [facility] Address [address] [facility], [address] [place] [address] Care Team Providers Care Database Modeler Name Role Phone Mat Loving MD Primary Care Provider [phone] Encounter Details DateTypeDepartmentCare Team (Latest Contact Info)Usdeveqdhzn00/03/2025 7:20 AM EST - 08/28/2025 11:59 PM ESTHospital Encounter [facility] [address] [id number] Other specified hypothyroidism; Seizures (HCC); Primary osteoarthritis of right knee; Mixed hyperlipidemia Discharge Disposition: Home or Self Care Social History Tobacco UseTypesPacks/DayYears UsedDateSmoking Tobacco: NeverSmokeless Tobacco: NeverAlcohol UseStandard Drinks/WeekCommentsNever0 (1 standard drink = 0.6 oz pure alcohol)17 years without alcoholSocial Connection and Isolation PanelAnswer Date RecordedIn a typical week, how many times do you talk on the phone with family, friends, or neighbors?More than three times a week08/12/2024How often do you get together with friends or relatives?Twice a week08/12/2024How often do you attend gnosticist or gnosticist services?Never08/12/2024o you belong to any clubs or organizations such as gnosticist groups, unions, fraternal or athletic rupali ups, or school groups?Yes08/12/2024How often do you attend meetings of the clubs or organizations you belong to?1 to 4 times per year08/12/2024re you , , , , never , or living with a partner?Never zqlyjta0008/12/2024UDIT-CAnswerDate RecordedQ1: How often do you have a drink containing alcohol?Never08/12/2024Q2: How many drinks containing alcohol do you have on a typical day when you are drinking?Patient does not drink08/12/2024Q3: How often do you have six or more drinks on one occasion?Never08/12/2024HQ-2 AnswerDate RecordedPHQ-9 Total Mhepq000Exercise Vital SignAnswerDate RecordedOn average, how many days [...] steady place to sleep or [facility] in [facility] (including now)?No02/10/2024Housing Stability Vital SignAnswerDate RecordedIn the last 12 months, was there a time when you were not able to pay the mortgage or rent on time?No08/18/2025In the past 12 months, how many times have you moved where you were living? At any time in the past 12 months, were you homeless or living in a fdc (including now)?No08/18/2025Humiliation, Afraid, Rape, and Kick questionnaire [...] relatives?Once a week08/18/2025How often do you attend gnosticist or gnosticist services?Never08/18/2025Do you belong to any clubs or organizations such as gnosticist groups, unions, fraCreative Allies or athletic groups, or school groups?Yes08/18/2025How often do you attend meetings of the clubs or organizations you belong to?More than 4 times per year08/18/2025re you , , , , never , or living with a partner?Never ptorahj8208/18/2025UDIT-CAnswerDate RecordedQ1: How often do you have a [...] housing, medical care, and heating?Not hard at all08/18/2025[facility] [place] [facility] Occup[facility] - Occupational Stress QuestionnaireAnswerDate RecordedDo you feel stress - tense, restless, nervous, or anxious, or unable to sleep at night because yourmind is troubled all the time - these days?To some itlqhj9908/18/2025Exercise Vital SignAnswerDate Recorded On average, how many [...] shut off services in your home?No08/18/2025Interpersonal Safety ([facility])AnswerDate RecordedHow often does anyone, including family and friends, physically hurt you?Never 08/12/2024How often does anyone, including family and friends, scream or curse at you?Never08/12/2024How often does anyone, including family and friends, insult or talk down to you?Znomlc0508/12/2024How often does anyone, including family and friends, threaten you with harm?Never08/12/2024Interpersonal Safety Domain Source: IP Abuse ScreeningAnswerDate RecordedPhysical abuseDenies 09/28/2024Verbal cqnrwUzgscx88/04/2024Emotional vcukzNpjuas32/04/2024Financial diyhnFsdvwc41/04/2024Sexual qklenXndyux04/04/2024CommentsNoSex and Gender InformationValueDate RecordedSex Assigned at BirthNot on fileLegal Sex Pqzhth8412/05/2012 10:58 AM ESTGender IdentityNot on fileSexual OrientationNot on filedocumented as of this encounter Medications at Time of Discharge MedicationSigDispense QuantityRefillsLast FilledStart DateEnd Date carBAMazepine (TEGRETOL) 200 MG tablet TAKE 1 TABLET BY MOUTH EVERY MORNING AND TAKE 2 TABLETS BY MOUTH ONCE NIGHTLY 90 tablet hydrOXYzine HCl (ATARAX) 25 MG tablet Take 1 tablet by mouth07/25/2025 traZODone (DESYREL) 100 MG tablet Take 1 tablet by mouth dvflixc1807/25/2025 benzonatate (TESSALON PERLES) 100 MG capsule Take 1 capsule by mouth 3 times daily as needed for Cough 30 capsule levothyroxine (SYNTHROID) 100 MCG tablet TAKE 1 TABLET BY MOUTH DAILY 90 tablet atorvastatin (LIPITOR) 40 MG tablet TAKE 1 TABLET BY MOUTH ONCE DAILY 90 tablet fluticasone (FLONASE) 50 MCG/ACT nasal spray 1 spray by Each Nostril route daily 32 g lamoTRIgine (LAMICTAL) 25 MG tablet Take 1 tablet by mouth daily07/14/2024 ARIPiprazole (ABILIFY) 10 MG tablet Take 1 tablet by mouth nightly at bedtime.12/15/2023 DEXILANT 60 MG CPDR delayed release capsule take 1 capsule by mouth once daily07/02/2020 folic acid (FOLVITE) 800 MCG tablet Take 1 tablet by mouth daily03/26/2020 venlafaxine (EFFEXOR) 100 MG tablet Take 1 tablet by mouth 2 times daily 90 tablet documented as of this encounter Plan of Treatment DateTypeDepartmentCare Team (Latest Contact Info)Ulnwduhligo08/21/2026 10:00 AM EDTOffice Visit Mat Loving MD [address] [place] [address] [place] [id number] Mat Loving MD [address] [facility], [place] [address] 6 month gc02/15/2026 10:40 AM EDTOffice Visit [facility] Part of [address] [place] [address] Joan Amaro MD [address] [place] [address] [address] [place] [address] 6 month f/u; Porxben96/27/2026 10:00 AM EDTOffice Visit Mat Loving MD [address] [place] [address] [place] [address] Mat Loving MD [address] [facility], [address] [facility] [address] awvdocumented as of this encounter Procedures Procedure NamePriorityDate/TimeAssociated DiagnosisCommentsLIPID, FASTINGRoutine 08/28/2025 7:22 AM EST Mixed hyperlipidemia COMPREHENSIVE METABOLIC PANEL, IZIRIMMCcfikue13/03/2025 7:22 AM EST Primary osteoarthritis of right knee FEAYljrsjf44/03/2025 7:22 AM EST Other specified hypothyroidism CARBAMAZEPINE LEVEL, ZBUAJnxxatm08/03/2025 7:22 AM EST Seizures (HCC) documented in this encounter Results * Lipid, Fasting (08/28/2025 7:22 AM EST)ComponentValueRef RangeTest Method Analysis TimePerformed AtPathologist SignatureCholesterol, Vagzbyj0902 - 199 mg/dL08/28/2025 7:22 AM ESTMERCY LABORATORIESComment: Cholesterol Guidelines: <200 Desirable 200-240 ??Borderline >240 Undesirable HDL60>40 mg/dL08/28/2025 7:22 AM ESTMERCY LABORATORIESComment: HDL Guidelines: <40 Undesirable 40-59 ?Borderline >59 Desirable LDL Cujkjukufsn361 - 100 mg/dL08/28/2025 7:22 AM ESTMERCY LABORATORIESComment: LDL Guidelines: <100 Desirable 100-129 ?? Near to/above Desirable 130-159 ?? Borderline >159 Undesirable Direct (measured) LDL and calculated LDL are not interchangeable tests. Chol/HDL Ratio2.6<5.011 7:22 AM ESTMERCY LABORATORIESTriglyceride, Nymnyor628 - 149 mg/dL08/28/2025 7:22 AM ESTMERCY LABORATORIESComment: Triglyceride Guidelines: <150 Desirable 150-199 ??Borderline 200-499 ??High >499 Very high Based on AHA Guidelines for fasting triglyceride, July 2012. QVJV011 - 30 mg/dL08/28/2025 7:22 AM ESTMERCY LABORATORIESSpecimen (Source) Anatomical Location / LateralityCollection Method / VolumeCollection Time Received TimeBloodBLOOD SPECIMEN / Nrfxveq6408/28/2025 7:22 AM EST08/28/2025 7:23 AM EST Narrative Authorizing ProviderResult TypeResult StatusMark Stuart Loving MDCHEMISTRY ORDERABLESFinal ResultPerforming OrganizationAddressCity/State/ZIP CodePhone Number [facility] [address] [place] [address], [facility] [phone] [facility] [address] [place] [address], [facility] [phone] * (ABNORMAL) Comprehensive Metabolic Panel, Fasting (08/28/2025 7:22 AM EST) ComponentValueRef RangeTest MethodAnalysis TimePerformed AtPathologist FkounpqaeMixflw301(L)136 - 145 mmol/L110/28/2024 7:22 AM [facility] LABPotassium4.23.7 - 5.3 mmol/L110/28/2024 7:22 AM [facility] UQNShmokqxf61(L)98 - 107 mmol/L110/28/2024 7:22 AM [facility] HTUQP28917 - 31 mmol/L110/28/2024 7:22 AM [facility] LABAnion Gap99 - 16 mmol/L110/28/2024 7:22 AM [facility] LABGlucose, Leyyfga774(H)74 - 99 mg/dL08/28/2025 7:22 AM [facility] YGHPTJ809 - 20 mg/dL08/28/2025 7:22 AM EST [facility] LABCreatinine0.80.50 - 0.90 mg/dL08/28/2025 7:22 AM [facility] LABEst, Glom Filt Rate>90>60 mL/min/1.73m2 08/28/2025 7:22 AM [facility] LABComment: ? These results are not intended [...] therapy that affects renal tubular secretion. BUN/Creatinine Kjgxx854 - 7:22 AM [facility] LABCalcium9.38.6 - 10.4 mg/dL08/28/2025 7:22 AM [facility] LABTotal Protein7.56.6 - 8.7 g/dL08/28/2025 7:22 AM [facility] LABAlbumin4.43.5 - 5.2 g/dL08/28/2025 7:22 AM [facility] LABAlbumin/Globulin Ratio1.41.0 - 2. 7:22 AM [facility] LABTotal Bilirubin0.30.00 - 1.20 mg/dL08/28/2025 7:22 AM EST [facility] LABAlkaline Pbcqwthlkxj364(H)35 - 104 U/L110/28/2024 7:22 AM [facility] AJKCQZ3948 - 35 U/L110/28/2024 7:22 AM [facility] KGYEKC6738 - 35 U/L110/28/2024 7:22 AM [facility] LABSpecimen (Source)Anatomical Location / Laterality Collection Method / VolumeCollection TimeReceived TimeBloodBLOOD SPECIMEN / Pvmxonk5108/28/2025 7:22 AM EST08/28/2025 7:23 AM EST Narrative Authorizing ProviderResult TypeResult StatusMark Stuart Loving MDCHEMISTRY ORDERABLESFinal ResultPerforming OrganizationAddressCity/State/ZIP CodePhone Number [facility] [address] [phone] * Carbamazepine Level, Free (08/28/2025 7:22 AM EST)ComponentValueRef RangeTest MethodAnalysis TimePerformed AtPathologist SignatureCarbamazepine, Free1.71.0 - 3.0 ug/mL08/28/2025 7:22 AM ESTARUP LABORATORYCarbamazepine, Total6.04.0 - 12.0 ug/mL08/28/2025 7:22 AM ESTUN[facility]% Free Lgbqmxyuzctjd24.38.0 - 35.0 %08/28/2025 7:22 AM [facility]ORATORYComment: (NOTE) INTERPRETIVE INFORMATION: Carbamazepine, Free and [...] from the Clinical Pharmacogenetics Implementation Consortium (https://www.pharmgkb.org/guidelines) [[facility] test code 3344584, HLA-B*15:02 Genotyping, Carbamazepine Hypersensitivity.] A combination of therapeutic drug monitoring with HLA-B*15:02 pharmacogenetics genotyping may benefit patients who are at increased risk for developing carbamazepine-induced adverse events due to rare genotypes other than HLA-B*15:02 variant allele. Performed By: [facility] [address] [place] [id number] Hoist Worker: Dedrick Gómez MD, PhD CLIA Number: [id number] Specimen (Source)Anatomical Location / LateralityCollection Method / Volume Collection TimeReceived TimeBloodBLOOD SPECIMEN / Sxrbiot7708/28/2025 7:22 AM EST 08/28/2025 7:23 AM EST Narrative Authorizing ProviderResult TypeResult StatusMark Stuart Loving MDCHEMISTRY ORDERABLESFinal ResultPerforming OrganizationAddressCity/State/ZIP CodePhone Number [facility] [address] [place] [address] [facility] [address] [phone] * TSH (08/28/2025 7:22 AM EST)ComponentValueRef RangeTest MethodAnalysis Time Performed AtPathologist SignatureTSH2.490.27 - 4.20 uIU/mL08/28/2025 7:22 AM [facility] LABSpecimen (Source)Anatomical Location / LateralityCollection Method / VolumeCollection TimeReceived TimeBloodBLOOD SPECIMEN / Azbydqm3008/28/2025 7:22 AM EST08/28/2025 7:23 AM EST Narrative Authorizing ProviderResult TypeResult StatusMark Stuart Loving MDCHEMISTRY ORDERABLESFinal ResultPerforming OrganizationAddressCity/State/ZIP CodePhone Number [facility] [address] [place] [address] documented in this encounter Visit Diagnoses Diagnosis Other specified hypothyroidism Seizures (HCC) Other convulsions Primary osteoarthritis of right knee Primary localized osteoarthrosis, lower leg Mixed hyperlipidemia documented in this encounter Additional Health Concerns AssessmentNoted TimeA fall risk assessment has been completed for the patient 08/18/2025 10:52 AM EDTdocumented as of this encounter Care Teams Team MemberRelationshipSpecialtyStart DateEnd Date Mat Loving MD [address] [place] [address], [facility] [place] [place] [address] PCP - General07/07/12documented as of this encounter
--- OUTSIDE RECORDS SUMMARY | 2025-09-01 10:01 | XMS_ITS | Clinical Summary ---
Author Organization [facility] Address [address] [place] [address] Care Team Providers Care Auditing Specialist Name Role Phone Mat Loving MD Primary Care Provider [phone] Nas Pyle Unavailable Unavailable Allergies No known active allergies Medications MedicationSigDispense QuantityRefillsLast FilledStart DateEnd DateStatus atorvastatin (LIPITOR) 40 mg tablet Active carBAMazepine (TEGRETOL) 200 mg tablet Take 200 mg by mouth daily at bedtime.Active venlafaxine (EFFEXOR) 100 mg tablet Active Omeprazole 40 mg capsule Active levothyroxine (SYNTHROID) 100 mcg tablet Active folic acid 800 mcg tablet Take 400 mcg by mouth once daily.Active phenytoin ER (DILANTIN) 100 mg ER capsule Take 1 capsule by mouth twice daily.04/26/2019Active DEXILANT 60 mg CpDM Take 1 capsule by mouth once daily.08/26/2020Active propranolol (INDERAL) 20 mg tablet Take 1 tablet by mouth twice daily. 60 tablet Active Active Problems ProblemNoted DateDiagnosed DateSeizure hxcnizro34/17/2018Action qmdngm3211/25/2017 Nzwcbwsdepll75/31/2018 Family History Medical HistoryRelationCommentsDepressionFatheranxietyFatherRelationStatus CommentsFatherAlive Social History Tobacco UseTypesPacks/DayYears UsedDateSmoking Tobacco: NeverSmokeless Tobacco: NeverPHQ-2AnswerDate RecordedPHQ-2 bqnbt02210/31/2019Area Deprivation IndexAnswer Date RecordedNational Score (1-100), lower number is lower riskNot on file 09/30/2020State Score (1-10), lower number is lower riskNot on file09/30/2020 Data from: https://www.neighborhoodatlas.medicine.[facility].edu/. Last address used for calculationNot on file09/30/2020CommentsUnknownSex and Gender InformationValueDate RecordedSex Assigned at BirthNot on fileLegal SexFemale 10/29/2017 4:48 PM ESTGender IdentityNot on fileSexual OrientationNot on file Last Filed Vital Signs Vital SignReadingTime TakenCommentsBlood Hwhvswys753/6208/31/2020 10:35 AM EST Lmkyp547108/31/2020 10:35 AM ZDAMchpmrhzxds73.1 ??C (97 ??F)02/09/2018 12:44 PM EDTRespiratory Rcgg186112/01/2018 10:35 AM ESTOxygen Wjmvizerhh70%08/31/2020 10:35 AM ESTInhaled Oxygen Concentration--Fecxir45.5 kg (219 lb 4.8 oz)08/31/2020 10:35 AM NTBQmtwtu256.1 cm (5' 5 )08/31/2020 10:35 AM ESTBody Mass Index36.49 08/31/2020 10:35 AM EST Plan of Treatment Health MaintenanceDue DateLast DoneCommentsAnxiety Obfojqcyo31/23/1991Depression Tthntmojg19/23/1991HIV Zgspxgjsi82/23/1991Hepatitis C Ftbpnocqm10/23/1991 Hepatitis B Vaccine (1 of 3 - 19+ 3-dose series)1992Cervical Cancer Pzynnoiba22/23/1994Mammogram Cfinaswtt16/23/2013CT Nliupdxoghfo27/23/2018 Cologuard (FIT-DNA)05/17/20183097Rbhoyyilqlq27/23/2018Colorectal Cancer Screening 2018Fecal Occult Blood05/17/20187762Aruuoflwxhguh59/23/2018Pneumococcal Vaccine: 50+ (1 of 1 - PCV)2023Shingrix Vaccine (1 of 2)3Diabetes Ehcaexrel29, 01/04/2020, 06/21/2018, Additional history exists Lipid Nnirhktsj21/11/68369101/04/2020, 07/07/2019, 06/21/2018Covid-19 Vaccine (1 - 2024- season)2025Influenza Vaccine (#1)/, 06/20/2019, 06/15/2018, Additional history existsDTaP,Tdap,Td Vaccine (2 - Td or Tdap) Procedures Procedure NamePriorityDate/TimeAssociated DiagnosisCommentsCOMPREHENSIVE METABOLIC ONKPKHzmvjej97/31/2018 5:11 PM EST Action tremor Neuroleptic-induced Parkinsonism (HCC) from Last 3 Months or Most Recently Relevant to Health Maintenance Results * (ABNORMAL) COMP METABOLIC PANEL (11/25/2017 5:11 PM EST)ComponentValueRef RangeTest MethodAnalysis TimePerformed AtPathologist SignatureProtein, Total 7.46.3 - 8.0 g/dL11/25/2017 7:[address] [facility]ORYAlbumin 4.13.9 - 4.9 g/dL11/25/2017 7:[address] [facility] LAB[facility]ATORYCalcium 9.08.5 - 10.2 mg/dL11/25/2017 7:51 PM [facility] Bilirubin, Total<0.2(L)0.2 - 1.3 mg/dL11/25/2017 7:51 PM [facility] LABORATORYAlkaline Hluhkgovscb7847 - 117 U/L11/25/2017 7:51 PM [facility] IIPIUKVMXIVGZ1471 - 35 U/L11/25/2017 7:51 PM [facility] VYODNGXRKQHpsohhr4670 - 99 mg/dL11/25/2017 7:51 PM [facility] LABORATORYComment: The [place] Diabetes Association (ADA) provides guidance for cutoff values for fasting glucose and random glucose. The ADA defines fasting as no caloric intake for at least 8 hours. Fasting plasma glucose results between 100 to 125 mg/dL indicate increased risk for diabetes (prediabetes). Fasting plasma glucose results greater than or equal to 126 mg/dL meet the criteria for diagnosis of diabetes. In the absence of unequivocal hyperglycemia, results should be confirmed by repeat testing. In a patient with classic symptoms of hyperglycemia or hyperglycemic crisis, random plasma glucose results greater than or equal to 200 mg/dL meet the criteria for diagnosis of diabetes. Reference: Standards of Medical Care in Diabetes 2016, [place] Diabetes Association. Diabetes Care. 2016.39(Suppl 1). YBF941 - 21 mg/dL11/25/2017 7:51 PM [facility] Creatinine0.730.58 - 0.96 mg/dL11/25/2017 7:51 PM [facility] NXFEICRLWBVnbant648087 - 144 mmol/L11/25/2017 7:51 PM [facility] LABORATORYPotassium4.03.7 - 5.1 mmol/L11/25/2017 7:51 PM [facility] NRQAHQOSCJTnrrxrzy5565 - 105 mmol/L11/25/2017 7:51 PM [facility] QQSKFPRGXQQX50896 - 30 mmol/L11/25/2017 7:51 PM [facility] LABORATORYAnion Iec293 - 18 mmol/L11/25/2017 7:51 PM [facility] RPSTLUEJDAEHQ874 - 38 U/L11/25/2017 7:51 PM [facility] eGFR->6001 7:51 PM [facility] eGFR-All Other Races>60.11/25/2017 7:51 PM [facility] Comment: eGFR (Estimated GFR) Units of measure: mL/min/1.73 meters squared eGFR is derived from the reexpressed MDRD Study equation using the following parameters: serum creatinine, age, gender and race. The creatinine assay has been calibrated to be traceable to IDMS. An eGFR <60 mL/min/1.73m2 for >3 months is consistent with chronic kidney disease. Refer to KDOQI guidelines for clinical interpretation. In patients with unstable renal function, e.g. those with acute kidney injury, the eGFR may not accurately reflect actual GFR. Specimen (Source)Anatomical Location / LateralityCollection Method / Volume Collection TimeReceived TimeBlood specimen (specimen)BLOOD SPECIMEN / Unknown 11/25/2017 5:11 PM EST11/25/2017 5:12 PM EST Narrative Authorizing ProviderResult TypeResult StatusXin Mary Aguayo MDLABORATORYFinal Result Performing OrganizationAddressCity/State/ZIP CodePhone Number [facility] [address] [place] [address] from Last 3 Months or Most Recently Relevant to Health Maintenance Insurance Care Teams Team MemberRelationshipSpecialtyStart DateEnd Date Mat Loving MD [id number] [place] [address] PCP - GeneralInternal Medicine10/29/17 Nas Pyle [id number] [place] [address] ReferringNeurolog10/29/17
--- OUTSIDE RECORDS SUMMARY | 2025-09-01 10:01 | XMS_ITS | Encounter Summary ---
Author Organization [facility] Address [address], [address] [place] [address] Care Team Providers Care Cement Mason Name Role Phone Mat Loving MD Primary Care Provider [phone] Encounter Details DateTypeDepartmentCare Team (Latest Contact Info)Mdwsqvngkqz17/03/2025Results Follow-Up Mat Loving MD [address] [place] [address] Mat Loving MD [address] [facility] [facility], [place] [address] Social History Tobacco UseTypesPacks/DayYears UsedDateSmoking Tobacco: NeverSmokeless [...] relatives?Twice a week08/12/2024How often do you attend cheondoism or worship services?Never4Do you belong to any clubs or organizations such as cheondoism groups, unions, fraternal or athletic rupali ups, or school groups?Yes08/12/2024How often do you attend meetings of the clubs or organizations you belong to?1 to 4 times per year08/12/2024re you , , , , never , or living with a partner?Never tldrdlg9908/12/2024UDIT-CAnswerDate RecordedQ1: How often do you have a drink containing alcohol?Never08/12/2024Q2: How many drinks containing alcohol do you have on a typical day when you are drinking?Patient does not drink08/12/2024Q3: How often do you have six or more drinks on one occasion?Never08/12/2024HQ-2 AnswerDate RecordedPHQ-9 Total [id number] Vital SignAnswerDate RecordedOn average, how many days [...] steady place to sleep or slept in located within [facility] (including now)?No02/10/2024Housing Stability Vital SignAnswerDate RecordedIn the last 12 months, was there a time when you were not able to pay the mortgage or rent on time?No08/18/2025In the past 12 months, how many times have you moved where you were living? At any time in the past 12 months, were you homeless or living in a alf (including now)?No08/18/2025Humiliation, Afraid, Rape, and Kick questionnaire [...] relatives?Once a week08/18/2025How often do you attend cheondoism or worship services?Never08/18/2025Do you belong to any clubs or organizations such as cheondoism groups, unions, fraAtheer Labs or athletic groups, or school groups?Yes08/18/2025How often do you attend meetings of the clubs or organizations you belong to?More than 4 times per year08/18/2025re you , , , , never , or living with a partner?Never poszmxi2308/18/2025UDIT-CAnswerDate RecordedQ1: How often do you have a [...] housing, medical care, and heating?Not hard at all08/18/2025[facility] - Occupational Stress QuestionnaireAnswerDate RecordedDo you feel stress - tense, restless, nervous, or anxious, or unable to sleep at night because yourmind is troubled all the time - these days?To some ancmrg2108/18/2025Exercise Vital SignAnswerDate Recorded On average, how many [...] shut off services in your home?No08/18/2025Interpersonal Safety ([facility])AnswerDate RecordedHow often does anyone, including family and friends, physically hurt you?Never 08/12/2024How often does anyone, including family and friends, scream or curse at you?Never08/12/2024How often does anyone, including family and friends, insult or talk down to you?Svpvyi4408/12/2024How often does anyone, including family and friends, threaten you with harm?Never08/12/2024Interpersonal Safety Domain Source: IP Abuse ScreeningAnswerDate RecordedPhysical abuseDenies 09/28/2024Verbal jhxauYvavld88/04/2024Emotional gxrylCkostu72/04/2024Financial rwpegRcajzy35/04/2024Sexual inehhDjgbqx50/04/2024CommentsNoSex and Gender InformationValueDate RecordedSex Assigned at BirthNot on fileLegal Sex Btrzqx5812/05/2012 10:58 AM ESTGender IdentityNot on fileSexual OrientationNot on filedocumented as of this encounter Plan of Treatment DateTypeDepartmentCare Team (Latest Contact Info)Fnpecbeccca15/21/2026 10:00 AM EDTOffice Visit Mat Loving MD [address] [place] [address] [place] [address] Mat Loving MD [address] [place] [address], [address] [place], [facility] 6 month gc02/15/2026 10:40 AM EDTOffice Visit [facility] Part of [address] [place] [phone] Joan Amaro MD [address] [facility] [address] [place] [address] 6 month f/u; Zngmrmh31/27/2026 10:00 AM EDTOffice Visit Mat Loving MD [address] [place] [address] [place] [address] Mat Loving MD [address] [place] [address] [place] [phone] awvdocumented as of this encounter Visit Diagnoses Not on filedocumented in this encounter Additional Health Concerns AssessmentNoted TimeA fall risk assessment has been completed for the patient 08/18/2025 10:52 AM EDTdocumented as of this encounter Care Teams Team MemberRelationshipSpecialtyStart DateEnd Date Mat Loving MD [address] [place] [address] [place] [address] PCP - General07/07/12documented as of this encounter
--- OUTSIDE RECORDS SUMMARY | 2025-09-01 10:01 | XMS_ITS | Clinical Summary ---
Author Organization [facility] Address [address], [address] [place] [address] Care Team Providers Care Global Account Director Name Role Phone Mat Loving MD Primary Care Provider [phone] Allergies No known active allergies Medications MedicationSigDispense QuantityRefillsLast FilledStart DateEnd DateStatus venlafaxine (EFFEXOR) 100 MG tablet Take 1 tablet by mouth 2 times daily 90 tablet Active DEXILANT 60 MG CPDR delayed release capsule take 1 capsule by mouth once daily07/02/2020Active folic acid (FOLVITE) 800 MCG tablet Take 1 tablet by mouth daily03/26/2020Active ARIPiprazole (ABILIFY) 10 MG tablet Take 1 tablet by mouth nightly at bedtime.12/15/2023ctive lamoTRIgine (LAMICTAL) 25 MG tablet Take 1 tablet by mouth daily4Active fluticasone (FLONASE) 50 MCG/ACT nasal spray 1 spray by Each Nostril route daily 32 g 1045Active propranolol (INDERAL) 20 MG tablet Indications:Tremors of nervous systemTake 1 tablet by mouth 2 times daily 60 tablet 504/24/5Active atorvastatin (LIPITOR) 40 MG tablet TAKE 1 TABLET BY MOUTH ONCE DAILY 90 tablet 304/29/5Active levothyroxine (SYNTHROID) 100 MCG tablet TAKE 1 TABLET BY MOUTH DAILY 90 tablet 307/28/5Active hydrOXYzine HCl (ATARAX) 25 MG tablet Take 1 tablet by mouth5Active traZODone (DESYREL) 100 MG tablet Take 1 tablet by mouth jchfwpo47/30/2025Active benzonatate (TESSALON PERLES) 100 MG capsule Take 1 capsule by mouth 3 times daily as needed for Cough 30 capsule 5Active carBAMazepine (TEGRETOL) 200 MG tablet TAKE 1 TABLET BY MOUTH EVERY MORNING AND TAKE 2 TABLETS BY MOUTH ONCE NIGHTLY 90 tablet 5Active carBAMazepine (TEGRETOL) 200 MG tablet TAKE 1 TABLET BY MOUTH EVERY MORNING AND TAKE 2 TABLETS BY MOUTH ONCE NIGHTLY 90 tablet /Discontinued(REORDER) Active Problems ProblemNoted DateDiagnosed DateArthritis of right knee09/28/2024rimary osteoarthritis of right knee08/12/2024Obesity, Class III, BMI 40-49.9 (morbid obesity)08/07/2023Other specified bylagrpyebqdyn22/09/9509Tsbryc18/03/2018 Overview (10/28/2017): Longstanding >20 years. Always getting worse. Polypharmacy Bipolar kayieylp79/01/2006Mixed hyperlipidemiaSeizures Resolved Problems ProblemNoted DateDiagnosed DateResolved DateAcute medial meniscus tear of right knee / planned surgery July 10//3Dermatitis due to plant04/01//3Chronic obstructive pulmonary disease, unspecified 01/08//3Paranoid ksffkgubhyqtl35/05//Iron deficiency xjxquu43/14/0999Dbaggsfmwowr98 Overview (10/28/2017): Psychiatric depakote, numerous others, multiple Aed on neuro referral 2017.- Encounters DateTypeDepartmentCare ZduqFafgpdihvrn98/03/2025 7:20 AM EST - 08/28/2025 11:59 PM ESTHospital Encounter [facility] [place] [facility] [address] [place] [address] Other specified hypothyroidism; Seizures (HCC); Primary osteoarthritis of right knee; Mixed hyperlipidemia Discharge Disposition: Home or Self Care08/28/2025Results Follow-Up Mat Loving MD [address] [place] [address] [place] [address] Mat Loving MD 08/17/2025 10:40 AM EDTOffice Visit [facility] Part of [address] [place] [address] Joan Amaro MD Tremors of nervous naqych2908/16/2025 9:30 AM EDTOffice Visit Mat Loving MD [address] [place] [address] [place] [address] Mat Loving MD Medicare annual wellness visit, subsequent (Primary Dx); Visit for screening mammogram; Seizures (HCC); Mixed hyperlipidemia; Other specified hypothyroidism; Primary osteoarthritis of right knee; Bipolar disorder, in partial remission, most recent episode mixed (HCC) 07/10/2025 10:00 AM EDTOffice Visit Mat Loving MD [address] [place] [address] [place] [address] Mat Loving MD Acute right ankle pain (Primary Dx); Visit for screening mammogramfrom Last 3 Months Immunizations ImmunizationAdministration DatesNext DueCOVID-19, Inactive, MODERNA BLUE border, Primary or Immunocompromised, (age 12y+)10/08/2021,02/14/2021,01/17/2021 Influenza Xwabdvhyn39/11/2017,07/28/2016Influenza Virus Hvxfeix8108/02/2021, 06/12/2020,06/20/2019,06/15/2018,07/27/2017,06/05/2017,09/16/2016,07/28/2016, 08/21/2015,08/25/2014Influenza, AFLURIA (age 3 y+), FLUZONE, (age 6 mo+), Quadv MDV, 0.5mL06/15/2018Influenza, FLUARIX, FLULAVAL, FLUZONE (age 6 mo+) and AFLURIA, (age 3 y+), Quadv PF, 0.5mL06/10/2023,08/02/2021,06/12/2020,06/20/2019, 06/15/2018Influenza, FLUARIX, FLULAVAL, FLUZONE, (age 6 mo+), AFLURIA, (age 3 y+), IM, Trivalent PF, 0.5mL06/05/2017Influenza, FLUBLOK, (age 9 y+), IM, Trivalent PF, 0.5mL07/17/2025,11/19/2024,08/12/2024Influenza, FLUCELVAX, (age 6 mo+), MDCK, Quadv PF, 0.5mL2Pneumococcal, PCV20, PREVNAR 20, (age 6w+), IM, 0.5mL11/19/2024RSV, ABRYSVO, ( or age 60y+), PF, IM, 0.5mL07/17/2025 TDaP, ADACEL (age 10y-64y), BOOSTRIX (age 10y+), IM, 0.5mL04/09/2016Zoster Recombinant (Shingrix)10/14/2023,06/02/2023 Family History Medical HistoryRelationNameCommentsNo Known ProblemsMotherRelationNameStatus CommentsMotherAlive Social History Tobacco UseTypesPacks/DayYears UsedDateSmoking Tobacco: NeverSmokeless [...] week08/12/2024How often do you attend religious or confucianist services?Never08/12/2024o you belong to any clubs or organizations such as religious groups, unions, fraternal or athletic groups, or school groups?Yes08/12/2024How often do you attend meetings of the clubs or organizations you belong to?1 to 4 times per year08/12/2024re you , , , , never , or living with a partner?Never sjficty7208/12/2024UDIT-CAnswerDate RecordedQ1: How often do you have a drink containing alcohol?Never08/12/2024Q2: How many drinks containing alcohol do you have on a typical day when you are drinking?Patient does not drink08/12/2024Q3: How often do you have six or more drinks on one occasion?Never08/12/2024HQ-2 AnswerDate RecordedPHQ-9 Total Uqhcr906Exercise Vital SignAnswerDate RecordedOn average, how many days [...] steady place to sleep or slept in military [facility] system (including now)?No02/10/2024Housing Stability Vital SignAnswerDate RecordedIn the last 12 months, was there a time when you were not able to pay the mortgage or rent on time?No08/18/2025In the past 12 months, how many times have you moved where you were living? At any time in the past 12 months, were you homeless or living in a mcfp (including now)?No08/18/2025Humiliation, Afraid, Rape, and Kick questionnaire [...] week08/18/2025How often do you attend religious or confucianist services?Never08/18/2025Do you belong to any clubs or organizations such as religious groups, unions, fraCop[employer] or athletic groups, or school groups?Yes08/18/2025How often do you attend meetings of the clubs or organizations you belong to?More than 4 times per year08/18/2025re you , , , , never , or living with a partner?Never fltdmmc5408/18/2025UDIT-CAnswerDate RecordedQ1: How often do you have a [...] housing, medical care, and heating?Not hard at all08/18/2025[facility] - Occupational Stress QuestionnaireAnswerDate RecordedDo you feel stress - tense, restless, nervous, or anxious, or unable to sleep at night because yourmind is troubled all the time - these days?To some sodife0708/18/2025Exercise Vital SignAnswerDate Recorded On average, how many days per week do you engage in moderate to strenuous exercise (like a brisk walk)?0 days08/18/2025On average, how many minutes do you engage in exercise at this level?0 min10/24/2025Hunger Vital SignAnswerDate RecordedWithin the past 12 months, [...] shut off services in your home?No08/18/2025Interpersonal Safety ([facility])AnswerDate RecordedHow often does anyone, including family and friends, physically hurt you?Never 08/12/2024How often does anyone, including family and friends, scream or curse at you?Never08/12/2024How often does anyone, including family and friends, insult or talk down to you?Wdspyv2208/12/2024How often does anyone, including family and friends, threaten you with harm?Never08/12/2024Interpersonal Safety Domain Source: IP Abuse ScreeningAnswerDate RecordedPhysical abuseDenies 09/28/2024Verbal nynpzIegsvi21/04/2024Emotional wwuueQwkjbt15/04/2024Financial amffnTbiiln68/04/2024Sexual lemckAwbvns46/04/2024CommentsNoSex and Gender InformationValueDate RecordedSex Assigned at BirthNot on fileLegal Sex Bcfpvk1712/05/2012 10:58 AM ESTGender IdentityNot on fileSexual OrientationNot on file Last Filed Vital Signs Vital SignReadingTime TakenCommentsBlood Tajrgzyg51/5708/17/2025 10:37 AM EDT Rdemg506508/17/2025 10:37 AM EFXDjyxbfzkqze99.7 ??C (96.2 ??F)08/17/2025 10:37 AM EDTRespiratory Yagj5040 10:37 AM EDTOxygen Pwvaihhcid85%09/29/2024 7:00 AM ESTInhaled Oxygen Concentration--Upvjcz681.1 kg (245 lb)08/17/2025 10:37 AM ENIRmtcuu715 cm (5' 3 )08/17/2025 10:37 AM EDTBody Mass Index43.410 10:37 AM EDT Plan of Treatment DateTypeDepartmentCare Team (Latest Contact Info)Unjzkispfgm72/21/2026 10:00 AM EDTOffice Visit Mat Loving MD [address] [place] [address] [place] [address] Mat Loving MD [address] [place] [address], [place] [address] 6 month 02/15/2026 10:40 AM EDTOffice Visit [facility] Part of [address] [place] [address] Joan Amaro MD [address] [place] [address] [address] [place] [address] 6 month f/u; Joidnvy94/27/2026 10:00 AM EDTOffice Visit Mat Loving MD [address] [place] [address] [place] [address] Mat Loving MD [address] [place] [address], [place] [address] awvHealth MaintenanceDue DateLast DoneCommentsHepatitis B vaccine (1 of 3 - 19+ 3-dose series)1992HPV (without or with Pap)2003FIT/FOBT: Average risk2018Fecal-DNA (Cologuard): Average risk2018Sigmoidoscopy/CT yakdylgapmtv78/23/2018Breast cancer vcqgwy10, 09/19/2015 Cervical cancer pkgntm5409/10/2019Pap smear, 09/05/2015A1C test (Diabetic or Prediabetic)/10/2023, 10/21/2023TaP/Tdap/Td vaccine (2 - Td or Tdap)Annual Wellness Visit (Medicare) , 08/12/2024, 08/07/2023, Additional history exists Depression Cryqdrdejl75, 08/18/20257948Fxrksy56, 07/25/2024, 10/21/2023, Additional history gpicuuXrtejydukxz58 Colorectal Cancer Vtgesp0303/26/2030HIV yffcdcFjpreangi09/20/2016 (Declined) Overridden with the intention of not completing the topicShingles vaccine Iajeanhpx81/20/2023, 06/02/2023OVID-19 GbsjfghGpuqcycej91/25/2025, 10/14/2023, 07/28/2022, Additional history existsPneumococcal 0-49 years VaccineDiscontinued 11/19/2024Pneumococcal 50+ years PkgryytFsxkrgtlz90/25/2025Flu vaccineCompleted 07/17/2025, 11/19/2024, 08/12/2024, Additional history existsDepression Screen Ijzwpzyazmqq82/24/2025, 08/18/2025Diabetes xcywdgUiwnbdmkmwog21/03/2025, 07/26/2024, 10/21/2023, Additional history existsHepatitis A vaccineAged OutNo longer eligible based on patient's age to complete this topicHepatitis C screen DiscontinuedHib vaccineAged OutNo longer eligible based on patient's age to complete this topicMeningococcal (ACWY) vaccineAged OutNo longer eligible based on patient's age to complete this topicMeningococcal B vaccineAged OutNo longer eligible based on patient's age to complete this topicPolio vaccineAged OutNo longer eligible based on patient's age to complete this topic Medical Devices ImplantedTypeAreaManufacturerDevice IdentifierShelf Expiration DateModel / Serial / LotCement Bne 40gm Hi Visc Radpq For Rev Surg - [id number] Implanted:Qty: 1 on 09/28/2024 by [facility]unch [facility] at [facility]: [employer]-[id number] / / [id number] Bne 40gm Hi Visc Radpq For Rev Surg - [id number] Implanted:Qty: 1 on 09/28/2024 by Bob Bunch MD at [facility]: [employer]-[id number] / / [id number] Fem Sz 4 R Knee Oxinium Cruce Ret Yared Legion Cr - [id number] Implanted:Qty: 1 on 09/28/2024 by Bob Bunch MD at [facility]: [facility] AND [employer]-[id number] / / [id number] Tib Sz 3 Rt Lab Specialist W/O Tapr Mod Gen Ii - [id number] Implanted:Qty: 1 on 09/28/2024 by [facility] at [facility]: [facility] [employer]-[id number] / / [id number] Tib Sz 3-4 Thk9mm Knee Xlpe Cruce Ret Hi Flx Legion - [id number] Implanted:Qty: 1 on 09/28/2024 by Bob Bunch MD at [facility]: [facility]SS[facility] AND NEPHEW ORTHOPAEDICS-[id number] / / [id number] IdentifierShelf Expiration Date Model / Serial / LotSet Pin L76mm Dia3.2mm S Stl Flut 127x3.2mm Drl Disp Gen - [id number] Explanted:Qty: 1 on 09/28/2024 by Bob Bunch MD at [facility]: K[employer]SMITH AND [employer]-[id number] / / [id number] Pin L76mm Dia3.2mm S Stl Flut 127x3.2mm Drl Disp Gen - [id number] Explanted:Qty: 1 on 09/28/2024 by Bob Bunch MD at [facility]: MalouMITZelalem AND NEPHLOY ORTHOP[employer]-[id number] / / [id number] Procedures Procedure NamePriorityDate/TimeAssociated DiagnosisCommentsLIPID, FASTINGRoutine 08/28/2025 7:22 AM EST Mixed hyperlipidemia COMPREHENSIVE METABOLIC PANEL, VORUGCKShumsat23/03/2025 7:22 AM EST Primary osteoarthritis of right knee CARBAMAZEPINE LEVEL, LBMGNsgyyuh67/03/2025 7:22 AM EST Seizures (HCC) RQAXurjyun51/03/2025 7:22 AM EST Other specified hypothyroidism HEMOGLOBIN Y0ZXuzraqn44/01/2024 7:34 AM EDT HM VVAHFJWDUYQDyvyhdd52/01/2020MAM DIGITAL SCREEN W OR WO CAD BILATERALRoutine 09/24/2016 3:01 PM EST Encounter for screening mammogram for malignant neoplasm of breast JUTE BAG CLIPPER XXNWJTPVPztilrz21/16/2016 12:07 PM EST from Last 3 Months or Most Recently Relevant to Health Maintenance Results * Lipid, Fasting (08/28/2025 7:22 AM EST)ComponentValueRef RangeTest Method Analysis TimePerformed AtPathologist SignatureCholesterol, Gyqynwd7008 - 199 mg/dL08/28/2025 7:22 AM ESTMERCY LABORATORIESComment: Cholesterol Guidelines: <200 Desirable 200-240 ??Borderline >240 Undesirable HDL60>40 mg/dL08/28/2025 7:22 AM ESTMERCY LABORATORIESComment: HDL Guidelines: <40 Undesirable 40-59 ?Borderline >59 Desirable LDL Ztenruovlvm521 - 100 mg/dL08/28/2025 7:22 AM ESTMERCY LABORATORIESComment: LDL Guidelines: <100 Desirable 100-129 ?? Near to/above Desirable 130-159 ?? Borderline >159 Undesirable Direct (measured) LDL and calculated LDL are not interchangeable tests. Chol/HDL Ratio2.6<5.011/12/2024 7:[address] [facility]ITALClarassance LABORATORIESTriglyceride, Dkokpqr774 - 149 mg/dL08/28/2025 7:22 AM [facility] LABORATORIESComment: Triglyceride Guidelines: <150 Desirable 150-199 ??Borderline 200-499 ??High >499 Very high Based on AHA Guidelines for fasting triglyceride, July 2012. DRCX590 - 30 mg/dL08/28/2025 7:[address] [facility]ITALClarassance LABORATORIESSpecimen (Source) Anatomical Location / LateralityCollection Method / VolumeCollection Time Received TimeBloodBLOOD SPECIMEN / Jcvkdse3508/28/2025 7:22 AM EST08/28/2025 7:23 AM EST Narrative Authorizing ProviderResult TypeResult StatusMark Stuart Loving MDCHEMISTRY ORDERABLESFinal ResultPerforming OrganizationAddressCity/State/ZIP CodePhone Number [facility] [address] [place] [address], [facility] [phone] [place] [address] [place] [address], [facility] [phone] * (ABNORMAL) Comprehensive Metabolic Panel, Fasting (08/28/2025 7:22 AM EST) ComponentValueRef RangeTest MethodAnalysis TimePerformed AtPathologist ZahoswmzrQpqaak781(L)136 - 145 mmol/L110/28/2024 7:22 AM [facility] LABPotassium4.23.7 - 5.3 mmol/L110/28/2024 7:22 AM [facility] VUACctfisvg15(L)98 - 107 mmol/L110/28/2024 7:22 AM [facility] XXCOY67143 - 31 mmol/L110/28/2024 7:22 AM [facility] LABAnion Gap99 - 16 mmol/L110/28/2024 7:22 AM [facility] LABGlucose, Gxeofhg440(H)74 - 99 mg/dL08/28/2025 7:22 AM [facility] UWDPAO549 - 20 mg/dL08/28/2025 7:22 AM [facility] LABCreatinine0.80.50 - 0.90 mg/dL08/28/2025 7:22 AM [facility] LABEst, Glom Filt Rate>90>60 mL/min/1.73m2 08/28/2025 7:22 AM [facility] LABComment: ? These results are [...] therapy that affects renal tubular secretion. BUN/Creatinine Adyel918 - 7:22 AM [facility] LABCalcium9.38.6 - 10.4 mg/dL08/28/2025 7:22 AM [facility] LABTotal Protein7.56.6 - 8.7 g/dL08/28/2025 7:22 AM [facility] LABAlbumin4.43.5 - 5.2 g/dL08/28/2025 7:22 AM [facility] LABAlbumin/Globulin Ratio1.41.0 - 2.511 7:22 AM [facility] LABTotal Bilirubin0.30.00 - 1.20 mg/dL08/28/2025 7:22 AM [facility] LABAlkaline Nwduywjntlf729(H)35 - 104 U/L110/28/2024 7:22 AM [facility] CRHEZG1199 - 35 U/L110/28/2024 7:22 AM [facility] VTRSBB6917 - 35 U/L110/28/2024 7:22 AM [facility] LABSpecimen (Source)Anatomical Location / Laterality Collection Method / VolumeCollection TimeReceived TimeBloodBLOOD SPECIMEN / Frogwsq3808/28/2025 7:22 AM EST08/28/2025 7:23 AM EST Narrative Authorizing ProviderResult TypeResult StatusMark Stuart Loving MDCHEMISTRY ORDERABLESFinal ResultPerforming OrganizationAddressCity/State/ZIP CodePhone Number [facility] [address] [phone] * TSH (08/28/2025 7:22 AM EST)ComponentValueRef RangeTest MethodAnalysis Time Performed AtPathologist SignatureTSH2.490.27 - 4.20 uIU/mL08/28/2025 7:22 AM [facility] LABSpecimen (Source)Anatomical Location / LateralityCollection Method / VolumeCollection TimeReceived TimeBloodBLOOD SPECIMEN / Klfxrfz7308/28/2025 7:22 AM EST08/28/2025 7:23 AM EST Narrative Authorizing ProviderResult TypeResult StatusMark Stuart Loving [facility] – TULSAHEMISTRY ORDERABLESFinal ResultPerforming OrganizationAddressCity/State/ZIP CodePhone Number [facility] [address] [place] [address] * Carbamazepine Level, Free (08/28/2025 7:22 AM EST)ComponentValueRef RangeTest MethodAnalysis TimePerformed AtPathologist SignatureCarbamazepine, Free1.71.0 - 3.0 ug/mL08/28/2025 7:22 AM ESTARUP LABORATORYCarbamazepine, Total6.04.0 - 12.0 ug/mL08/28/2025 7:22 AM ESTARUP LABORATORY% Free Quugktrjtnilk29.38.0 - 35.0 %08/28/2025 7:22 AM ESTARUP LABORATORYComment: [...] from the Clinical Pharmacogenetics Implementation Consortium (https://www.pharmgkb.org/guidelines) [[facility] test code 9823307, HLA-B*15:02 Genotyping, Carbamazepine Hypersensitivity.] A combination of therapeutic drug monitoring with HLA-B*15:02 pharmacogenetics genotyping may benefit patients who are at increased risk for developing carbamazepine-induced adverse events due to rare genotypes other than HLA-B*15:02 variant allele. Performed By: [facility] [address] [place] [address] Mix Maker: Dedrick Gómez MD, PhD CLIA Number: [id number] Specimen (Source)Anatomical Location / LateralityCollection Method / Volume Collection TimeReceived TimeBloodBLOOD SPECIMEN / Swffxmq3208/28/2025 7:22 AM EST 08/28/2025 7:23 AM EST Narrative Authorizing ProviderResult TypeResult StatusMark Stuart Loving MDCHEMISTRY ORDERABLESFinal ResultPerforming OrganizationAddressCity/State/ZIP CodePhone Number [facility] [address] [place] [address] [facility] [address] [place] [address] * Hemoglobin A1C (07/26/2024 7:34 AM EDT)ComponentValueRef RangeTest Method Analysis TimePerformed AtPathologist SignatureHemoglobin A1C5.94.0 - 6.0 % 07/26/2024 7:34 AM EDTMERCY LABORATORIESEstimated Avg Ywcqlyl955vm/dL 07/26/2024 7:34 AM EDTMERCY LABORATORIESComment: The ADA and AACC recommend providing the estimated average glucose result to permit better patient understanding of their HBA1c result. Specimen (Source)Anatomical Location / LateralityCollection Method / Volume Collection TimeReceived Time07/26/2024 7:34 AM EDT1 7:35 AM EDT Narrative Authorizing ProviderResult TypeResult StatusMark Stuart Loving MDCHEMISTRY ORDERABLESFinal ResultPerforming OrganizationAddressCity/State/ZIP CodePhone Number [facility] [address] [place] [address], [facility] [phone] [facility] [address] [place], [place] [address] [phone] * HM COLONOSCOPY (03/26/2020) Narrative Authorizing ProviderResult TypeResult StatusHistorical Provider MDHEALTH MAINTENANCEFinal Result * MAHAMED Digital Screen Bilateral (09/24/2016 3:01 PM EST)Anatomical Region LateralityModalityBreastBilateralMammographySpecimen (Source)Anatomical Location / LateralityCollection Method / VolumeCollection TimeReceived Time 09/24/2016 3:03 PM EST Narrative 09/24/2016 4:59 PM EST Bilateral digital screening mammograms with CAD. Reason for examination: Asymptomatic screening. Views: Bilateral CC, MLO views. In comparison with the study of 09/19/2015, there has been no significant interval change. There isscattered fibroglandular density within the breasts. No discrete or spiculated mass lesion or suspicious calcifications are seen. Impression: No mammographic evidence of malignancy. Recommendation: Routine screening mammograms in one year would be appropriate for a patient in thisage group. BI-RADS Category 1: Negative. Final report electronically signed by Shawn Vasquez on 09/24/2016 4:59 PM Procedure Note Shawn Vasquez MD - 09/24/2016 Bilateral digital screening mammograms with CAD. Reason for examination: Asymptomatic screening. Views: Bilateral CC, MLO views. In comparison with the study of 09/19/2015, there has been no significant interval change. There is scattered fibroglandular density within thebreasts. No discrete or spiculated mass lesion or suspiciouscalcifications are seen. Impression: No mammographic evidence of malignancy. Recommendation: Routine screening mammograms in one year would beappropriate for a patient in this age group. BI-RADS Category 1: Negative. Final report electronically signed by Shawn Vasquez on 09/24/2016 4:59PM Authorizing ProviderResult TypeResult StatusMasood Le HYDRAULIC AUTO JACK MECHANIC - CNPIMG MAMMOGRAPHY ORDERABLESFinal Result * JUTE BAG CLIPPER Cytology (09/10/2016 12:07 PM EST)ComponentValueRef RangeTest Method Analysis TimePerformed AtPathologist SignatureCytology Report(NOTE) [id number] [facility] ??[facility]ORATORIES CONSULTING PATHOLOGISTS [facility] ANATOMIC PATHOLOGY [address] [place] [address]. ??[employer], [place] [address] GYNECOLOGIC CYTOLOGY REPORT Patient Name: LAURYN MELENDEZ MR#: [id number] Specimen #[id number] Source: 1: Cervical-Endocervical material, (Thin prep vial, Imaging-assisted review) Clinical History Z01.411 JUTE BAG CLIPPER exam (general) (routine) with abnormal findings Date of prior pap: 09/05/15 normal Normal exam LMP: ??08/09/16 INTERPRETATION Cervical-Endocervical material, (Thin prep vial, Imaging-assisted review): Specimen Adequacy: ?Satisfactory for evaluation. ?- Endocervical/transformation zone component present. Descriptive Diagnosis: ?Negative for intraepithelial lesion or malignancy. Storage Center Manager: ?? MAKAYLA Alcaraz(ASCP) Electronically Signed Out /09/26/2016 09/26/2016 12:00 AM [facility] LABSpecimen (Source) Anatomical Location / LateralityCollection Method / VolumeCollection Time Received Time09/10/2016 12:07 PM EST09/11/2016 12:07 PM EST Narrative Authorizing ProviderResult TypeResult Elbert Le HYDRAULIC AUTO JACK MECHANIC - AMUSEMENT MACHINE MECHANIC PATHOLOGY/CYTOLOGY ORDERABLESFinal ResultPerforming OrganizationAddress City/State/ZIP CodePhone Number [facility] [address] [place] [address], [facility] [phone] from Last 3 Months or Most Recently Relevant to Health Maintenance Insurance * Guarantor: Lauryn Melendez Mason TypeRelation to PatientDate of BirthPhone Billing AddressPersonal/EtdggjHnmx1975 [address] [address] * Guarantor: Lauryn Melendez TypeRelation to PatientDate of BirthPhone Billing AddressPersonal/DrgbtoBzih1975 [address] [address] Advance Directives * Full Code (Latest Code Status on File) Date ActivatedDate [id number]/4/2024 4:29 PM09/29/2024 2:52 PM Care Teams Team MemberRelationshipSpecialtyStart DateEnd Date Mat Loving MD [address] [place] [address], [facility] [place] [address] [facility] - [facility]07/07/12
--- NOTE | 2025-09-01 10:10 | MM_ITS ---
Patient Name: LAURYN MELENDEZ MR#: [id number] : 1975 Exam Date: 09/01/2025 Ordering Doctor: DR VERA MISTRY RADIOLOGY REPORT PROCEDURE: MM TOMOSYNTHESIS SCREENING BI COMPARISON: MM SCREENING MAMMO BI, 09/24/2016. MM SCREENING MAMMO BI, 09/19/2015. INDICATIONS: Screening Calculator Name NCI Breast Cancer Risk Assessment Tool 5 Year Breast Cancer Risk Not Reported. Lifetime Breast Cancer Risk Not Reported. Personal Breast Cancer No Personal Ovarian Cancer No Treatments None Family Cancers None LOCATION: [facility] BREAST COMPOSITION: There are scattered areas of fibroglandular density. FINDINGS: DIAGNOSTIC CATEGORY 1--NEGATIVE. NO CHANGE FROM COMPARISON ASSESSMENT. RIGHT BREAST: No significant suspicious finding. LEFT BREAST: No significant suspicious finding. RECOMMENDATIONS: ROUTINE MAMMOGRAM AND CLINICAL EVALUATION IN 12 MONTHS. Dictated by: Vera Tellez MD on 09/04/2025 at 10:30 Approved by: Vera Tellez MD on 09/04/2025 at 10:45
== END 2025-09-01 09:52 | disposition home or self-care (01) ==
LOC: MAMMO 09:56
PROVIDERS: Family Provider Internal Medicine; PCP Internal Medicine; Visit Provider Internal Medicine
DX: Z12.31 Encounter for screening mammogram for malignant neoplasm of breast (principal)
CPT/HCPCS: 77063; 77067